=== PATIENT | female | born 1950 | race Caucasian/White ===

== ENCOUNTER → 2018-05-29 | Outpatient (CLI) | payer MEDICARE, BC ==
[2018-05-29 13:46] LABS: HCT 48.5 % (34.0-46.0); HGB 15.2 gm/dL (11.4-16.0); MCH 30.5 pg (25.0-35.0); MCHC 31.3 g/dL (31.0-37.0); MCV 97.4 fL (80.0-100.0); Mean Platelet Volume 6.4; Platelet Count 567 k/uL (150-450); RBC 4.98 m/uL (3.80-5.40); RDW 12.1 % (11.5-15.5); WBC 9.8 k/uL (3.8-10.6)
[2018-05-29 13:47] LABS: Partial Thromboplastin Time 26.5 sec (22.0-30.0); Prothrombin Time 10.5 sec (9.0-12.0)
[2018-05-29 13:48] LABS: ALT 80 U/L (9-52); AST 65 U/L (14-36); Albumin 4.3 g/dL (3.5-5.0); Alkaline Phosphatase 107 U/L (38-126); Anion Gap 11 mmol/L; Blood Urea Nitrogen 17 mg/dL (7-17); Calcium 10.3 mg/dL (8.4-10.2); Carbon Dioxide 25 mmol/L (22-30); Chloride 105 mmol/L (98-107); Glucose 98 mg/dL (74-99); Potassium 4.5 mmol/L (3.5-5.1); Sodium 141 mmol/L (137-145); Total Bilirubin 0.5 mg/dL (0.2-1.3); Total Protein 6.7 g/dL (6.3-8.2)
[2018-05-29 14:14] LABS: Appearance,Urine Clear (Clear); Bilirubin,Urine Negative (Negative); Blood,Urine Negative (Negative); Color,Urine Yellow; Glucose,Urine (UA) Negative (Negative); Ketones,Urine Negative (Negative); Leukocyte Esterase,Urine Negative (Negative); Nitrite,Urine Negative (Negative); Protein,Urine Negative (Negative); Specific Gravity,Urine 1.014 (1.001-1.035); Urobilinogen,Urine <2.0 mg/dL (<2.0)
== END | disposition home or self-care (01) ==
LOC: LABPAT 13:02
PROVIDERS: ATTEND Orthopaedic Surgery
DX: Z01.818 Encounter for other preprocedural examination (principal); Z01.812 Encounter for preprocedural laboratory examination; Z79.01 Long term (current) use of anticoagulants
CPT/HCPCS: 36415; 80053; 81003; 85027; 85610; 85730; 87070; 93005

== ENCOUNTER 2018-06-23 05:32 | Inpatient (IN) | payer MEDICARE, BC ==
[2018-06-16 12:52] VITALS: BMI 28.3
[~2018-06-23 05:32] MED LIST: ACETAMINOPHEN TAB 500 MG TAB PO ONE; DEXAMETHASONE SOD PHOSPHATE 10 MG/ML 1 ML VIAL IV ONE; HYDROmorphone 0.5 MG/0.5 ML SYRINGE IVP PRN; LIDOCAINE 1% 20 ML VIAL (10MG/ML) FOR IV START INTRADERMA PRN; MELOXICAM 7.5 MG TAB PO ONE; ONDANSETRON 4 MG/2 ML VIAL IVP ONE; TRANEXAMIC ACID 1,000 MG in SODIUM CHLORIDE 0.9% 50 ML IVPB ONE; ceFAZolin IN SWFI 2 GM/20 ML SYRINGE IVP ONE
[2018-06-23] MEDS ORDERED: ROPIVACAINE 246.25 MG, EPINEPHrine 0.5 MG, KETOROLAC 30 MG, cloNIDine HCL/PF 80 MCG, WA... MISCELLANE ONE ×5 (06:10)
[2018-06-23] MEDS: LACTATED RINGERS 1,000 ML IV SCH (06:14)
[2018-06-23] MEDS ORDERED: MIDAZOLAM 2 MG/2 ML VIAL IV ONE (06:43)
[2018-06-23] MEDS ORDERED: fentaNYL (PF) 50 MCG/ML 2 ML AMP IV ONE (06:43)
[2018-06-23] MEDS ORDERED: TRANEXAMIC ACID 1,000 MG/10 ML VIAL ONE (07:11)
[2018-06-23] MEDS ORDERED: MIDAZOLAM 2 MG/2 ML VIAL ONE (07:11)
[2018-06-23] MEDS ORDERED: fentaNYL (PF) 50 MCG/ML 2 ML AMP ONE (07:11)
[2018-06-23] MEDS ORDERED: ePHEDrine SULFATE/0.9% NACL/PF 50 MG/5 ML SYRINGE IV ONE (07:11)
[2018-06-23] MEDS ORDERED: SODIUM CHLORIDE 0.9% 100 ML BAG ONE (07:11)
[2018-06-23] MEDS ORDERED: PROPOFOL 10 MG/ML 20 ML VIAL IV ONE (07:11)
[2018-06-23] MEDS ORDERED: LIDOCAINE 1% INJ 10MG/ML (20 ML MDV) ONE (07:11)
[2018-06-23] MEDS ORDERED: ceFAZolin 3,000 MG in SODIUM CHLORIDE 0.9% IRRIGATIO 3,000 ML IRRIGATION ONE (07:16)
[2018-06-23] MEDS ORDERED: NA PHOS,M-B/NA PHOS,DI-BA 133 ML ENEMA RECTAL PRN (07:17)
[2018-06-23] MEDS ORDERED: HYDROcodone/APAP 5-325MG 1 EACH TAB PO PRN (07:17)
[2018-06-23] MEDS ORDERED: NALOXONE 0.4 MG/ML 1 ML VIAL IV PRN (07:17)
[2018-06-23] MEDS ORDERED: HYDROmorphone 0.5 MG/0.5 ML SYRINGE IVP PRN ×3 (07:17)
[2018-06-23] MEDS ORDERED: BISACODYL 10 MG SUPP RECTAL PRN (07:17)
[2018-06-23] MEDS ORDERED: ONDANSETRON 4 MG/2 ML VIAL IVP PRN (07:17)
[2018-06-23] MEDS ORDERED: MAGNESIUM HYDROXIDE 2,400 MG/10 ML CUP PO PRN (07:17)
--- NOTE | 2018-06-23 08:39 | P.OP ---
Date of Procedure: 06/23/18 Preoperative Diagnosis: Severe osteoarthritis left knee Postoperative Diagnosis: Severe osteoarthritis left knee Procedure(s) Performed: Left total knee arthroplasty Implants: Cortez [employer] Nephew Journey II CR Oxinium cruciate retaining femoral component size 4, left Cortez [employer] Nephew Journey left nonporous tibial baseplate size 2 Cortez [employer] Nephew Journey II, XLPE CR articular insert, size 9 mm, Size 1-2 left Cortez [employer]hew Journey BCS resurfacing oval patellar component, 29 mm All components were cemented using [place] R bone cement.. The articulation is Oxinium on polyethylene. Anesthesia: spinal Surgeon: Elijah Azul Retail Merchandiser #1: Eulalia Canales Estimated Blood Loss (ml): 25 Pathology: other (Bone and cartilage) Condition: stable Disposition: PACU Indications for Procedure: After failure of conservative treatment we discussed the surgical and nonsurgical treatment options at length. Patient wishes to proceed with a total knee arthroplasty. Complications specific to this procedure were discussed at length, including but not limited to infection, bleeding, stiffness , and nerve injury. Patient is aware of all these complications and informed consent was obtained Operative Findings: The operative findings are consistent with severe osteoarthritis of the left knee Description of Procedure: Patient was seen in the preoperative area consent was reviewed and operative site was marked with a skin marker. An adductor canal pain catheter was placed by anesthesia in the preoperative area. Patient was then brought to the operating room and given preoperative antibiotics intravenously. A spinal anesthetic was administered by the anesthesia department. A tourniquet was placed on the upper thigh and the lower extremity was prepped and draped in usual sterile fashion. A gram of transexamic acid was given. A universal timeout was then performed which confirmed the patient's name, surgical site, ALLERGIES, and consent. The lower extremity was then exsanguinated and tourniquet was inflated to 250 mmHg. A standard and anterior midline approach to the knee was performed. The skin and subcutaneous tissue was dissected down to the patellar tendon. A medial parapatellar arthrotomy was then performed. The knee was then extended, the patellar was everted, and the knee was again flexed. Anterior horns of both menisci were excised, and a release was performed to the posterior medial aspect of the knee. On gross visual inspection, there was complete loss of articular cartilage in the medial and patellofemoral joint spaces. There was also significant cartilage damage in the lateral compartment. There were multiple periarticular osteophytes which were then removed with a Ronguer. The femoral canal was then opened with the appropriate drill, and the intramedullary femoral cutting guide was then placed and set for 5 of valgus. The distal femoral cutting block was then pinned in place, and the distal femur was then cut. The cutting block was then removed and the cut was checked for flatness. Next, the sizing guide was then placed and set for 3 external rotation based off of the epicondylar axis and Whitesides line. After the femur was sized, the appropriate 4-in-1 cutting block was then pinned in place. The anterior condyles were cut without notching. The posterior and chamfer cuts were performed while protecting the collateral ligaments. The cutting block was then removed, and the femoral canal was plugged with autologous bone. Attention was then directed to the tibia. The remaining ACL was removed with a Ronguer, and the tibia was then gently subluxed forward with a large bent knee retractor. Any remaining menisci was excised. The posterior lateral corner was cauterized in order to cauterize the lateral geniculate artery. The extra medullary tibial cutting guide was then placed, set for the appropriate rotation , slope, and depth of resection. The proximal tibia cutting guide was then pinned in place. Proximal tibia was then cut and sized. Next trials were then placed with the appropriate-sized insert. The knee was able to fully extend and flex to 130 and was stable throughout all range of motion. The knee was then extended, patella everted. Patella was then measured, and then using an osteotomy guide, the patella was cut at the appropriate level. The patella was then measured and drilled and the patella trial was then placed. The knee was then taken through range of motion with the patella trial and the patella tracked normally. The knee was then extended patella trial was then removed and the patella was everted. Knee was then flexed and lug holes were drilled through the femoral trial and the femoral trial was then removed. The tibial was then exposed, and the tibial broach guide was then pinned in place after it was set for the appropriate rotation to allow for the most coverage without overhang. The tibia was then reamed and broached. The cut surfaces of bone were then irrigated with pulsatile lavage. The posterior structures were injected with the ropivacaine solution. The knee was also irrigated with Irrisept solution. The components were then opened, the cement was mixed, and the components were then cemented in place. The cement was allowed to harden with the knee in full extension. While the cement was hardening, the remaining soft tissues were then injected with a ropivacaine solution, which consisted of 246.25 mg of ropivacaine, 0.5 mg of epinephrine, 30 mg of Toradol, 80 g of clonidine, and 48.45 mL of sterile water, for a total of 100 mL of fluid injected. After the cemented hardened. The tourniquet was released, and hemostasis was obtained. A second gram of transexamic acid was given. The knee was again irrigated. The knee was again taken through range of motion and found to be stable throughout all range of motion of 0-130 , and the patella tracked normally. The fascia was then closed with #2 strata fix suture. The subcutaneous tissue was closed with 3-0 Vicryl and 3-0 strata fix. Dermabond glue was used for the skin and placed with the knee in flexion. The patient was placed in a sterile silver dressing. Patient was then transferred to recovery room in stable condition. The assistant city attorney GBAI Brewer was required due the complexity surgery and the need for a skilled assistant city attorney. She assisted in positioning, draping, retraction, and closure of the wound.
[2018-06-23] MEDS ORDERED: ROPIVACAINE 1,100 MG, SODIUM CHLORIDE 0.9% 500 ML 330 ML MISCELLANE PRN ×2 (09:06)
--- NOTE | 2018-06-23 09:09 | P.ONQ ---
Anesthesiology Proc Note - PNB - Peripheral Nerve Block Performed Left Adductor Canal Infusion Time Out Performed: Yes (641) Procedure Start Time: 06:42 Procedure Stop Time: 06:52 Indication: Acute Post-Operative Pain, Dx/Pain Location (Left Knee Pain), Requested by physician Sedation Type: Sedate with meaningful contact maintained Preparation: Sterile Prep Position: Supine Catheter: Indwelling Needle Types: On-Q Needle Size: 100mm (4") Needle Gauge: 21 Technique: Ultrasound Injectate: 0.5% Ropivacaine (see comment for volume) (20ml) Blood Aspirated: No Pain Paresthesia on Injection Noted: No Resistance on Injection: Normal Events: Uneventful and Well Tolerated
--- NOTE | 2018-06-23 10:08 | XR ---
EXAMINATION TYPE: XR knee limited LT DATE OF EXAM: 06/23/2018 CLINICAL HISTORY: Left knee pain and arthritis status post total knee replacement. TECHNIQUE: Portable AP and crosstable lateral views of the left knee are obtained immediately postop eratively. COMPARISON: None FINDINGS: Metallic hardware from total left knee arthroplasty is seen and appears satisfactory in al ignment and position. There is evidence of recent surgery with diffuse subcutaneous gas and soft tis dez swelling noted. IMPRESSION: METALLIC HARDWARE FROM TOTAL LEFT KNEE ARTHROPLASTY IS SATISFACTORY IN ALIGNMENT.
[2018-06-23] MEDS ORDERED: SODIUM CHLORIDE 0.9% 1,000 ML IV ONE (12:47)
[2018-06-23] MEDS: ceFAZolin IN SWFI 2 GM/20 ML SYRINGE IVP SCH ×2 (17:01→23:47)
--- NOTE | 2018-06-23 18:59 | P.CONS ---
History of Present Illness - Reason for Consult Perioperative complication management - History of Present Illness This is a pleasant 67-year-old female admitted for left meatoplasty successfully underwent surgery does have good bowel sounds did pass gas. Patient doesn't have any fever chills. Nausea vomiting abdominal pain. Review of Systems REVIEW OF SYSTEMS: CONSTITUTIONAL: No fever, no malaise, no fatigue. HEENT: No recent visual problems or hearing problems. Denied any sore throat. CARDIOVASCULAR: No chest pain, orthopnea, PND, no palpitations, no syncope. PULMONARY: No shortness of breath, no cough, no hemoptysis. GASTROINTESTINAL: No diarrhea, no nausea, no vomiting, no abdominal pain. NEUROLOGICAL: No headaches, no weakness, no numbness. HEMATOLOGICAL: Denies any bleeding or petechiae. GENITOURINARY: Denies any burning micturition, frequency, or urgency. MUSCULOSKELETAL/RHEUMATOLOGICAL: Denies any joint pain, swelling, or any muscle pain. ENDOCRINE: Denies any polyuria or polydipsia. The rest of the 14-point review of systems is negative. Past Medical History Past Medical History: Cancer, GERD/Reflux, Hyperlipidemia, Osteoarthritis (OA) Additional Past Medical History / Comment(s): HX DIVERTICULITIS, hx. breast cancer 5 yrs. ago-tx. w/radiation & surgery History of Any Multi-Drug Resistant Organisms: None Reported Past Surgical History: Breast Surgery, Section, Tubal Ligation Additional Past Surgical History / Comment(s): right breast lumpectomy 2013 Past Anesthesia/Blood Transfusion Reactions: No Reported Reaction Past Psychological History: No Psychological Hx Reported Smoking Status: Former smoker Past Alcohol Use History: Occasional Additional Past Alcohol Use History / Comment(s): quit smoking 3 months ago, smoked 1ppd for 50 yrs. Past Drug Use History: None Reported - Past Family History Brother(s) Family Medical History: Blood Disorder Additional Family Medical History / Comment(s): BROTHER HX -FACTOR 5 LIEDEN - PT WAS RECENTLY TESTED BY DR. FOWLER AT [facility]-NO RESULTS YET Mother Family Medical History: Cancer Additional Family Medical History / Comment(s): breast CA Medications and Allergies Home Medications Medication Instructions Recorded Confirmed Type Acetaminophen Tab [Tylenol Tab] 650 mg PO Q4-6H PRN 06/16/18 06/23/18 History Omeprazole 20 mg PO QAM 06/16/18 06/23/18 History Loratadine [Claritin] 10 mg PO DAILY PRN 06/23/18 06/23/18 History Allergies Allergy/AdvReac Type Severity Reaction Status Date / Time adhesive Allergy skin Verified 06/23/18 13:49 blisters when tape removed bacitracin Allergy Rash/Hives Verified 06/23/18 13:49 [From Neosporin ([id number])] bacitracin zinc Allergy Rash/Hives Verified 06/23/18 13:49 [From Neosporin ([id number])] neomycin sulfate Allergy Rash/Hives Verified 06/23/18 13:49 [From Neosporin ([id number])] nickel Allergy Rash/Hives Verified 06/23/18 13:49 polymyxin B Allergy Rash/Hives Verified 06/23/18 13:49 [From Neosporin ([id number])] Physical Exam Vitals: Vital Signs Temp Pulse Pulse Pulse Resp BP Pulse Ox 06/23/18 15:00 98.1 F 83 16 123/66 94 L 06/23/18 12:00 72 16 122/56 99 06/23/18 11:30 78 14 123/59 92 L 06/23/18 11:00 80 16 124/58 96 06/23/18 10:30 78 16 123/58 96 06/23/18 10:00 70 16 110/56 99 06/23/18 09:39 68 16 118/56 98 06/23/18 09:24 72 16 114/59 95 06/23/18 09:09 72 16 112/54 96 06/23/18 08:54 97.8 F 83 12 116/56 99 06/23/18 06:11 97.6 F 76 16 145/67 97 Intake and Output 06/23/18 06/23/18 06/23/18 06:59 14:59 22:59 Intake Total 400 791 Output Total 25 Balance 400 766 Intake: IV 400 726 Intake, IV Titration 65 Amount Sodium Chloride 0.9% 1, 65 000 ml @ 65 mls/hr IV . [id number] [facility] Rx#:[id number] Output: Estimated Blood Loss 25 PHYSICAL EXAMINATION: GENERAL: The patient is alert and oriented x3, not in any acute distress. Well developed, well nourished. HEENT: Pupils are round and equally reacting to light. EOMI. No scleral icterus. No conjunctival pallor. Normocephalic, atraumatic. No pharyngeal erythema. No thyromegaly. CARDIOVASCULAR: S1 and S2 present. No murmurs, rubs, or gallops. PULMONARY: Chest is clear to auscultation, no wheezing or crackles. ABDOMEN: Soft, nontender, nondistended, normoactive bowel sounds. No palpable organomegaly. MUSCULOSKELETAL: Deferred to orthopedic surgery EXTREMITIES: No cyanosis, clubbing, or pedal edema. NEUROLOGICAL: Gross neurological examination did not reveal any focal deficits. SKIN: No rashes. Assessment and Plan Plan: -Status post a left knee arthroplasty: Pain management due to prophylaxis per primary service -Gastroesophageal reflux disease Prilosec will be resumed -Hyperlipidemia: Not on any medications can be addressed as an outpatient
[2018-06-23] MEDS: ASPIRIN 325 MG TAB PO SCH (20:19)
[2018-06-23] MEDS ORDERED: SENNOSIDES-DOCUSATE SODIUM 1 EACH TAB PO SCH (21:00)
[2018-06-24] MEDS: HYDROcodone/APAP 5-325MG 1 EACH TAB PO PRN ×3 (00:06→13:00)
[2018-06-24] MEDS: SODIUM CHLORIDE 0.9% 1,000 ML IV SCH ×2 (00:07→00:09)
[2018-06-24] MEDS: LACTATED RINGERS 1,000 ML IV SCH (05:48)
[2018-06-24] MEDS ORDERED: PANTOPRAZOLE 40 MG TABLET PO SCH (07:30)
[2018-06-24 07:50] LABS: Basophils % (A) 0 %; Eosinophils # (A) 0.1 k/uL (0-0.7); Eosinophils % (A) 1 %; HCT 40.3 % (34.0-46.0); Lymphocytes # (A) 1.7 k/uL (1.0-4.8); Lymphocytes % (A) 19 %; MCH 31.1 pg (25.0-35.0); MCHC 32.3 g/dL (31.0-37.0); MCV 96.2 fL (80.0-100.0); Mean Platelet Volume 6.9; Monocytes # (A) 0.8 k/uL (0-1.0); Monocytes % (A) 9 %; Neutrophils # (A) 5.9 k/uL (1.3-7.7); Neutrophils % (A) 68 %; Platelet Count 350 k/uL (150-450); RBC 4.19 m/uL (3.80-5.40); RDW 12.7 % (11.5-15.5); WBC 8.7 k/uL (3.8-10.6)
[2018-06-24] MEDS: ASPIRIN 325 MG TAB PO SCH (07:52)
[2018-06-24 07:59] VITALS: BP 129/68; PULSE 72; RESP 16; TEMP 97.6
--- NOTE | 2018-06-24 08:06 | P.PN ---
Progress Note - Text 06/24 749 am 67-year-old female status post total knee replacement by Dr. Nava height off. Patient has an On-Q pump for postop pain control with the solution running at 8 mL an hour with a vas of 1-2. Doing very well,continue On-Q pump infusion
[2018-06-24] MEDS ORDERED: MELOXICAM 7.5 MG TAB PO SCH (09:00)
--- NOTE | 2018-06-24 09:06 | P.DS ---
Providers Date of admission: 06/23/18 05:32 Expected date of discharge: 06/24/18 Attending physician: Elijah Azul Consults: 06/23/18 07:17 Consult Physician Routine Consulting Provider: Eliu Moore Consult Reason/Comments: medical management Do you want consulting provider notified?: Yes 06/23/18 13:27 Consult Physician Routine Consulting Provider: Linda Gray Consult Reason/Comments: medical management Do you want consulting provider notified?: Already Contacted Primary care physician: Viktor Moore - Discharge Diagnosis(es) (1) Osteoarthritis of left knee Current Visit: Yes Status: Acute (2) Status post total left knee replacement Current Visit: Yes Status: Acute Hospital Course: This is a 67-year-old female with known history of degenerative arthritis of the left knee. The patient presents for evaluation. After discussion and consideration patient elects to proceed with total knee arthroplasty. The patient is seen preoperatively by Dr. Azul and medically cleared for surgery by their primary care physician. Patient is admitted to [facility] on 06/23/2018 for total knee arthroplasty. The procedures performed without complication or sequelae. The patient is doing well postoperatively. Labs and vital signs are stable on day of discharge. On day of discharge patient's knee incision is healing well. There is minimal erythema. There is no drainage noted at this time. There is minimal soft tissue swelling to the knee. Patient has full foot and ankle motion without difficulty or pain. Neurovascular status to the left lower extremity is intact. Patient is discharged home in good condition. Please see med rec for accurate list of home medications. Plan - Discharge Summary Discharge Rx Participant: Yes New Discharge Prescriptions: New Aspirin 325 mg PO BID #60 tab HYDROcodone/APAP 5-325MG [[place] 5-325] 1 - 2 tab PO Q6HR PRN #56 tab PRN Reason: Pain Sennosides [Senokot] 1 tab PO BID #60 tablet No Action Acetaminophen Tab [Tylenol Tab] 650 mg PO Q4-6H PRN PRN Reason: Pain Omeprazole 20 mg PO QAM Loratadine [Claritin] 10 mg PO DAILY PRN PRN Reason: allergies Discharge Medication List Acetaminophen Tab [Tylenol Tab] 650 mg PO Q4-6H PRN 06/16/18 [History] Omeprazole 20 mg PO QAM 06/16/18 [History] Loratadine [Claritin] 10 mg PO DAILY PRN 06/23/18 [History] Aspirin 325 mg PO BID #60 tab 06/24/18 [Rx] HYDROcodone/APAP 5-325MG [[place] 5-325] 1 - 2 tab PO Q6HR PRN #56 tab 06/24/18 [ Rx] Sennosides [Senokot] 1 tab PO BID #60 tablet 06/24/18 [Rx] Follow up Appointment(s)/Referral(s): Eliu Moore MD [Primary Care Provider] - 1 Week [facility], [NON-STAFF] - Elijah Azul DO [Doctor of Osteopathic Medicine] - 2 Weeks Activity/Diet/Wound Care/Special Instructions: Weightbearing as tolerated with a walker. CPM 5-6h daily. Leave dressing intact. May be removed by home care nurse in 10 days. May shower with dressing on. Please follow up with [facility] and call with any questions or concerns, . Discharge Disposition: HOME WITH HOME HEALTH SERVICES
== END 2018-06-24 14:04 | disposition home health service (06) | DRG 470 ==
LOC: 2ORMAIN 05:32 → 4SSUR 12:33
PROVIDERS: ADMIT Orthopaedic Surgery; ATTEND Orthopaedic Surgery
PROC: 0SRD069 Replacement of Left Knee Joint with Oxidized Zirconium on Polyethylene Synthetic Substitute, Cemented, Open Approach (ICD-10-PCS; principal; 2018-06-23 07:00)
DX: M17.12 Unilateral primary osteoarthritis, left knee (principal); E78.5 Hyperlipidemia, unspecified; K21.9 Gastro-esophageal reflux disease without esophagitis; Z80.3 Family history of malignant neoplasm of breast; Z85.3 Personal history of malignant neoplasm of breast; Z87.891 Personal history of nicotine dependence; Z92.3 Personal history of irradiation; Z83.2 Family history of diseases of the blood and blood-forming organs and certain disorders involving the immune mechanism; Z88.8 Allergy status to other drugs, medicaments and biological substances
CPT/HCPCS: 85025; 88300

== ENCOUNTER 2019-07-31 17:17 | Inpatient (IN) | payer MEDICARE, BC ==
[2019-07-31] MEDS ORDERED: MORPHINE SULFATE 4 MG/ML SYRINGE IV STA (17:31)
[2019-07-31] MEDS ORDERED: SODIUM CHLORIDE 0.9% 1,000 ML IV STA ×2 (17:31)
[2019-07-31] MEDS ORDERED: ONDANSETRON 4 MG/2 ML VIAL IVP STA (17:31)
[2019-07-31] MEDS ORDERED: FAMOTIDINE 20 MG/2 ML VIAL IV STA (17:32)
--- NOTE | 2019-07-31 17:35 | ED ---
General Adult HPI - General Chief complaint: Abdominal Pain Stated complaint: Abdominal pain Time Seen by Provider: 07/31/19 17:22 Source: patient, RN notes reviewed Mode of arrival: ambulatory Limitations: no limitations - History of Present Illness Initial comments: Patient is a pleasant 7 he 8-year-old female presenting to the emergency Department with abdominal discomfort. Onset of symptoms was yesterday. Patient has vomited multiple times. Patient still has nausea. Decreased oral intake. patient or diarrhea. Patient does have history of diverticulitis more than once previously with somewhat similar symptoms however discomfort at this point is more diffuse were previously was more left lower quadrant. No fever however patient has had chills. - Related Data Home Medications Medication Instructions Recorded Confirmed Acetaminophen Tab [Tylenol Tab] 650 mg PO Q4-6H PRN 06/16/18 06/23/18 Omeprazole 20 mg PO QAM 06/16/18 06/23/18 Loratadine [Claritin] 10 mg PO DAILY PRN 06/23/18 06/23/18 Previous Rx's Medication Instructions Recorded Aspirin 325 mg PO BID #60 tab 06/24/18 HYDROcodone/APAP 5-325MG [[place] 1 - 2 tab PO Q6HR PRN #56 tab 06/24/18 5-325] Sennosides [Senokot] 1 tab PO BID #60 tablet 06/24/18 Allergies Allergy/AdvReac Type Severity Reaction Status Date / Time adhesive Allergy skin Verified 07/31/19 17:22 blisters when tape removed bacitracin Allergy Rash/Hives Verified 07/31/19 17:22 [From Neosporin ([id number])] bacitracin zinc Allergy Rash/Hives Verified 07/31/19 17:22 [From Neosporin ([id number])] neomycin sulfate Allergy Rash/Hives Verified 07/31/19 17:22 [From Neosporin ([id number])] nickel Allergy Rash/Hives Verified 07/31/19 17:22 polymyxin B Allergy Rash/Hives Verified 07/31/19 17:22 [From Neosporin ([id number])] Review of Systems ROS Statement: Those systems with pertinent positive or pertinent negative responses have been documented in the HPI. ROS Other: All systems not noted in ROS Statement are negative. Constitutional: Reports: chills. Denies: fever Eyes: Denies: eye pain ENT: Denies: ear pain Respiratory: Denies: cough Cardiovascular: Denies: chest pain Endocrine: Denies: fatigue Gastrointestinal: Reports: as per HPI, abdominal pain, nausea, vomiting. Denies: diarrhea, constipation Genitourinary: Denies: dysuria Musculoskeletal: Denies: back pain Skin: Denies: rash Neurological: Denies: weakness Past Medical History Past Medical History: Cancer, GERD/Reflux, Hyperlipidemia, Osteoarthritis (OA) Additional Past Medical History / Comment(s): HX DIVERTICULITIS, hx. breast cancer 5 yrs. ago-tx. w/radiation & surgery History of Any Multi-Drug Resistant Organisms: None Reported Past Surgical History: Breast Surgery, Section, Orthopedic Surgery, Tubal Ligation Additional Past Surgical History / Comment(s): right breast lumpectomy 2014 Past Anesthesia/Blood Transfusion Reactions: No Reported Reaction Past Psychological History: No Psychological Hx Reported Smoking Status: Current every day smoker Past Alcohol Use History: Occasional Past Drug Use History: None Reported - Past Family History Brother(s) Family Medical History: Blood Disorder Additional Family Medical History / Comment(s): BROTHER HX -FACTOR 5 LIEDEN - PT WAS RECENTLY TESTED BY DR. FOWLER AT [facility]-NO RESULTS YET Mother Family Medical History: Cancer Additional Family Medical History / Comment(s): breast CA General Exam Limitations: no limitations General appearance: alert, in no apparent distress Head exam: Present: normocephalic Eye exam: Present: normal appearance, PERRL ENT exam: Present: normal oropharynx Neck exam: Present: normal inspection Respiratory exam: Present: normal lung sounds bilaterally Cardiovascular Exam: Present: regular rate, normal rhythm Expanded Peripheral pulses: 2+: Dorsalis Pedis (R), Dorsalis Pedis (L) GI/Abdominal exam: Present: soft, tenderness (Mild to moderate diffuse tenderness), normal bowel sounds. Absent: distended, guarding, rebound, rigid, pulsatile mass Extremities exam: Present: normal inspection Neurological exam: Present: alert Psychiatric exam: Present: normal affect, normal mood Skin exam: Present: normal color Course Vital Signs 07/31/19 07/31/19 17:20 19:00 Temperature 98.4 F 97.8 F Pulse Rate 102 H 94 Respiratory 18 18 Rate Blood Pressure 160/70 155/91 O2 Sat by Pulse 98 95 Oximetry Medical Decision Making - Medical Decision Making Patient reevaluated and updated. Patient is feeling better. Case discussed with Dr. Day, who will admit covering for hospital surgical call. He does request NG tube. - Lab Data Result diagrams: 07/31/19 17:33 07/31/19 17:33 Lab Results 07/31/19 07/31/19 07/31/19 Range/Units 17:33 17:33 17:33 WBC 15.7 H (3.8-10.6) k/uL RBC 5.64 H (3.80-5.40) m/uL Hgb 17.7 H (11.4-16.0) gm/dL Hct 52.9 H (34.0-46.0) % MCV 93.8 (80.0-100.0) fL MCH 31.4 (25.0-35.0) pg MCHC 33.5 (31.0-37.0) g/dL RDW 12.4 (11.5-15.5) % Plt Count 583 H (150-450) k/uL Neutrophils % 81 % Lymphocytes % 12 % Monocytes % 5 % Eosinophils % 1 % Basophils % 0 % Neutrophils # 12.8 H (1.3-7.7) k/uL Lymphocytes # 1.8 (1.0-4.8) k/uL Monocytes # 0.8 (0-1.0) k/uL Eosinophils # 0.1 (0-0.7) k/uL Basophils # 0.0 (0-0.2) k/uL PT 10.1 (9.0-12.0) sec INR 1.0 (<1.2) APTT 26.0 (22.0-30.0) sec Sodium 136 L (137-145) mmol/L Potassium 4.2 (3.5-5.1) mmol/L Chloride 101 (98-107) mmol/L Carbon Dioxide 26 (22-30) mmol/L Anion Gap 9 mmol/L BUN 23 H (7-17) mg/dL Creatinine 0.65 (0.52-1.04) mg/dL Est GFR (CKD-EPI)AfAm >90 (>60 ml/min/1.73 sqM) Est GFR (CKD-EPI)NonAf >90 (>60 ml/min/1.73 sqM) Glucose 129 H (74-99) mg/dL Calcium 11.0 H (8.4-10.2) mg/dL Total Bilirubin 1.3 (0.2-1.3) mg/dL AST 46 H (14-36) U/L ALT 39 H (4-34) U/L Alkaline Phosphatase 125 (38-126) U/L Total Protein 7.5 (6.3-8.2) g/dL Albumin 4.8 (3.5-5.0) g/dL Amylase 40 (30-110) U/L Lipase 76 (23-300) U/L Urine Color Urine Appearance (Clear) Urine pH (5.0-8.0) Ur Specific [place] (1.001-1.035) Urine Protein (Negative) Urine Glucose (UA) (Negative) Urine Ketones (Negative) Urine Blood (Negative) Urine Nitrite (Negative) Urine Bilirubin (Negative) Urine Urobilinogen (<2.0) mg/dL Ur Leukocyte Esterase (Negative) Urine RBC (0-5) /hpf Urine WBC (0-5) /hpf /12/12 Range/Units 18:17 WBC (3.8-10.6) k/uL RBC (3.80-5.40) m/uL Hgb (11.4-16.0) gm/dL Hct (34.0-46.0) % MCV (80.0-100.0) fL MCH (25.0-35.0) pg MCHC (31.0-37.0) g/dL RDW (11.5-15.5) % Plt Count (150-450) k/uL Neutrophils % % Lymphocytes % % Monocytes % % Eosinophils % % Basophils % % Neutrophils # (1.3-7.7) k/uL Lymphocytes # (1.0-4.8) k/uL Monocytes # (0-1.0) k/uL Eosinophils # (0-0.7) k/uL Basophils # (0-0.2) k/uL PT (9.0-12.0) sec INR (<1.2) APTT (22.0-30.0) sec Sodium (137-145) mmol/L Potassium (3.5-5.1) mmol/L Chloride (98-107) mmol/L Carbon Dioxide (22-30) mmol/L Anion Gap mmol/L BUN (7-17) mg/dL Creatinine (0.52-1.04) mg/dL Est GFR (CKD-EPI)AfAm (>60 ml/min/1.73 sqM) Est GFR (CKD-EPI)NonAf (>60 ml/min/1.73 sqM) Glucose (74-99) mg/dL Calcium (8.4-10.2) mg/dL Total Bilirubin (0.2-1.3) mg/dL AST (14-36) U/L ALT (4-34) U/L Alkaline Phosphatase (38-126) U/L Total Protein (6.3-8.2) g/dL Albumin (3.5-5.0) g/dL Amylase (30-110) U/L Lipase (23-300) U/L Urine Color Light Yellow Urine Appearance Clear (Clear) Urine pH 6.5 (5.0-8.0) Ur Specific [place] 1.022 (1.001-1.035) Urine Protein Negative (Negative) Urine Glucose (UA) Negative (Negative) Urine Ketones Negative (Negative) Urine Blood Trace H (Negative) Urine Nitrite Negative (Negative) Urine Bilirubin Negative (Negative) Urine Urobilinogen <2.0 (<2.0) mg/dL Ur Leukocyte Esterase Negative (Negative) Urine RBC <1 (0-5) /hpf Urine WBC <1 (0-5) /hpf - Radiology Data Radiology results: report reviewed (Computed tomography scan concerning for small bowel obstruction) Disposition Clinical Impression: Small bowel obstruction Disposition: ADMITTED IP TO THIS [facility] Is patient prescribed a controlled substance at d/c from ED?: No Referrals: Eliu Moore MD [Primary Care Provider] - 1-2 days Decision Time: 19:13
[2019-07-31 17:46] LABS: Basophils % (A) 0 %; Eosinophils # (A) 0.1 k/uL (0-0.7); Eosinophils % (A) 1 %; HCT 52.9 % (34.0-46.0); HGB 17.7 gm/dL (11.4-16.0); Lymphocytes # (A) 1.8 k/uL (1.0-4.8); Lymphocytes % (A) 12 %; MCH 31.4 pg (25.0-35.0); MCHC 33.5 g/dL (31.0-37.0); MCV 93.8 fL (80.0-100.0); Mean Platelet Volume 7.5; Monocytes # (A) 0.8 k/uL (0-1.0); Monocytes % (A) 5 %; Neutrophils # (A) 12.8 k/uL (1.3-7.7); Neutrophils % (A) 81 %; Platelet Count 583 k/uL (150-450); RBC 5.64 m/uL (3.80-5.40); RDW 12.4 % (11.5-15.5); WBC 15.7 k/uL (3.8-10.6)
[2019-07-31 17:55] LABS: Prothrombin Time 10.1 sec (9.0-12.0)
[2019-07-31 17:56] LABS: ALT 39 U/L (4-34); AST 46 U/L (14-36); African American GFR (CKD) >90 (>60 ml/min/1.73 sqM); Albumin 4.8 g/dL (3.5-5.0); Alkaline Phosphatase 125 U/L (38-126); Amylase 40 U/L (30-110); Anion Gap 9 mmol/L; Blood Urea Nitrogen 23 mg/dL (7-17); Carbon Dioxide 26 mmol/L (22-30); Chloride 101 mmol/L (98-107); Glucose 129 mg/dL (74-99); Non-African American GFR(CKD) >90 (>60 ml/min/1.73 sqM); Potassium 4.2 mmol/L (3.5-5.1); Sodium 136 mmol/L (137-145); Total Bilirubin 1.3 mg/dL (0.2-1.3); Total Protein 7.5 g/dL (6.3-8.2)
--- NOTE | 2019-07-31 18:46 | CT ---
EXAMINATION TYPE: CT abdomen pelvis w con DATE OF EXAM: 07/31/2019 COMPARISON: 11/07/2010 HISTORY: Abdomen pain, nausea CT DLP: 1233.8 mGycm Automated exposure control for dose reduction was used. CONTRAST: Performed with IV Contrast, patient injected with 100 mL of Isovue 300. Multiple axial sections were obtained from the diaphragm to the floor the pelvis with intravenous con trast Isovue 100 mL. Lung bases are clear of consolidation. There is no pleural effusion. Heart size is normal. Liver spleen stomach pancreas gallbladder appear normal. Bile ducts are not dilated. There is no adre nal mass. There is some nodularity of the left adrenal gland. Kidneys show satisfactory contrast opac ification. There is no hydronephrosis. Ureters are not dilated. There are multiple diverticula of the sigmoid colon. Bladder distends smoothly. There is no inguinal hernia. There is no evidence of a pel ken mass. Uterus is anteverted. There are numerous diverticula throughout the colon. Appendix appears normal. There is no mesenteric edema. There are multiple dilated fluid-filled loops of small bowel in the mid and upper abdomen. The ileum is not dilated. Transition point not identified. There is no evidence o f free air. There is no ascites. There is disc space narrowing at L3-4 with spurring and vacuum disc. There is no lumbar compression fracture. Bony pelvis appears intact. IMPRESSION: Multiple dilated fluid-filled loops of jejunum and proximal ileum consistent with mechanical small keyona wel obstruction. Transition point not identified. Small bowel measures up to 3.5 cm. Moderately severe colonic diverticulosis without sign of diverticulitis. Bowel obstruction appears new compared to old exam.
[2019-07-31 19:09] LABS: Appearance,Urine Clear (Clear); Bilirubin,Urine Negative (Negative); Blood,Urine Trace (Negative); Color,Urine Light Yellow; Glucose,Urine (UA) Negative (Negative); Ketones,Urine Negative (Negative); Leukocyte Esterase,Urine Negative (Negative); Nitrite,Urine Negative (Negative); PH, Urine 6.5 (5.0-8.0); Protein,Urine Negative (Negative); RBC,Urine <1 /hpf (0-5); Specific Gravity,Urine 1.022 (1.001-1.035); Urobilinogen,Urine <2.0 mg/dL (<2.0); WBC,Urine <1 /hpf (0-5)
[2019-07-31] MEDS ORDERED: NALOXONE 0.4 MG/ML 1 ML VIAL IV PRN (19:20)
[2019-07-31] MEDS ORDERED: HYDROmorphone 1 MG/ML 1 ML SYRINGE IVP PRN (19:20)
[2019-07-31] MEDS: ONDANSETRON 4 MG/2 ML VIAL IVP PRN (23:40)
[2019-08-01] MEDS: SODIUM CHLORIDE 0.9% 1,000 ML IV SCH ×4 (05:35→19:38)
[2019-08-01] MEDS: HYDROmorphone 0.5 MG/0.5 ML SYRINGE IVP PRN ×2 (06:36→22:34)
[2019-08-01] MEDS: PANTOPRAZOLE 40 MG/10 ML VIAL IV SCH (09:47)
--- NOTE | 2019-08-01 10:04 | P.GSHP ---
History of Present Illness H&P Date: 08/01/19 68-year-old female presents to the emergency department with 2 days of nausea, vomiting and abdominal pain. She states that she has not had an episode like this previously. She denied any fevers, chills, chest pain or shortness of breath. On workup in the emergency department, CT of the abdomen and pelvis was performed. CT revealed small bowel obstruction with no obvious transition point. The patient states that she has had 2 previous C-sections but no other abdominal surgery. She states that she has had diverticulitis episodes in the past. She states her last bowel movement was 2 days ago and has not had flatus since that time. NG tube was placed by the emergency department with bilious output. - Review of Systems All systems: negative Past Medical History Past Medical History: Cancer, GERD/Reflux, Hyperlipidemia, Osteoarthritis (OA) Additional Past Medical History / Comment(s): HX DIVERTICULITIS, hx. breast cancer 5 yrs. ago-tx. w/radiation & surgery History of Any Multi-Drug Resistant Organisms: None Reported Past Surgical History: Breast Surgery, Section, Orthopedic Surgery, Tubal Ligation Additional Past Surgical History / Comment(s): right breast lumpectomy 2013 Past Anesthesia/Blood Transfusion Reactions: No Reported Reaction Past Psychological History: No Psychological Hx Reported Smoking Status: Current every day smoker Past Alcohol Use History: Occasional Additional Past Alcohol Use History / Comment(s): quit smoking 14 mths ago, smoked 1ppd for 50 yrs. Past Drug Use History: None Reported - Past Family History Brother(s) Family Medical History: Blood Disorder Additional Family Medical History / Comment(s): BROTHER HX -FACTOR 5 LIEDEN - PT WAS RECENTLY TESTED BY DR. FOWLER AT [facility]-NO RESULTS YET Mother Family Medical History: Cancer Additional Family Medical History / Comment(s): breast CA Medications and Allergies Home Medications Medication Instructions Recorded Confirmed Type Acetaminophen Tab [Tylenol Tab] 650 mg PO Q4-6H PRN 06/16/18 06/23/18 History Omeprazole 20 mg PO QAM 06/16/18 06/23/18 History Loratadine [Claritin] 10 mg PO DAILY PRN 06/23/18 06/23/18 History Aspirin 325 mg PO BID #60 tab 06/24/18 Rx HYDROcodone/APAP 5-325MG [[place] 1 - 2 tab PO Q6HR PRN #56 tab 06/24/18 Rx 5-325] Sennosides [Senokot] 1 tab PO BID #60 tablet 06/24/18 Rx Allergies Allergy/AdvReac Type Severity Reaction Status Date / Time adhesive Allergy skin Verified 07/31/19 17:22 blisters when tape removed bacitracin Allergy Rash/Hives Verified 07/31/19 17:22 [From Neosporin ([id number])] bacitracin zinc Allergy Rash/Hives Verified 07/31/19 17:22 [From Neosporin ([id number])] neomycin sulfate Allergy Rash/Hives Verified 07/31/19 17:22 [From Neosporin ([id number])] nickel Allergy Rash/Hives Verified 07/31/19 17:22 polymyxin B Allergy Rash/Hives Verified 07/31/19 17:22 [From Neosporin ([id number])] Surgical - Exam Osteopathic Statement: *. No significant issues noted on an osteopathic structural exam other than those noted in the History and Physical/Consult. Vital Signs Temp Pulse Resp BP Pulse Ox 98.4 F 102 H 18 160/70 98 07/31/19 17:20 07/31/19 17:20 07/31/19 17:20 07/31/19 17:20 07/31/19 17:20 - General well nourished, no distress - Eyes PERRL - ENT no hearing loss - Neck trachea midline - Respiratory normal respiratory effort - Abdomen Soft, nontender, nondistended, no rebound, no guarding - Psychiatric oriented to time, oriented to person, oriented to place Results - Labs 07/31/19 17:33 07/31/19 17:33 Abnormal Lab Results - Last 24 Hours (Table) 07/31/19 07/31/19 07/31/19 Range/Units 17:33 17:33 18:17 WBC 15.7 H (3.8-10.6) k/uL RBC 5.64 H (3.80-5.40) m/uL Hgb 17.7 H (11.4-16.0) gm/dL Hct 52.9 H (34.0-46.0) % Plt Count 583 H (150-450) k/uL Neutrophils # 12.8 H (1.3-7.7) k/uL Sodium 136 L (137-145) mmol/L BUN 23 H (7-17) mg/dL Glucose 129 H (74-99) mg/dL Calcium 11.0 H (8.4-10.2) mg/dL AST 46 H (14-36) U/L ALT 39 H (4-34) U/L Urine Blood Trace H (Negative) Diabetes panel 07/31/19 Range/Units 17:33 Sodium 136 L (137-145) mmol/L Potassium 4.2 (3.5-5.1) mmol/L Chloride 101 (98-107) mmol/L Carbon Dioxide 26 (22-30) mmol/L BUN 23 H (7-17) mg/dL Creatinine 0.65 (0.52-1.04) mg/dL Glucose 129 H (74-99) mg/dL Calcium 11.0 H (8.4-10.2) mg/dL AST 46 H (14-36) U/L ALT 39 H (4-34) U/L Alkaline Phosphatase 125 (38-126) U/L Total Protein 7.5 (6.3-8.2) g/dL Albumin 4.8 (3.5-5.0) g/dL Calcium panel 07/31/19 Range/Units 17:33 Calcium 11.0 H (8.4-10.2) mg/dL Albumin 4.8 (3.5-5.0) g/dL Pituitary panel 07/31/19 Range/Units 17:33 Sodium 136 L (137-145) mmol/L Potassium 4.2 (3.5-5.1) mmol/L Chloride 101 (98-107) mmol/L Carbon Dioxide 26 (22-30) mmol/L BUN 23 H (7-17) mg/dL Creatinine 0.65 (0.52-1.04) mg/dL Glucose 129 H (74-99) mg/dL Calcium 11.0 H (8.4-10.2) mg/dL Adrenal panel 07/31/19 Range/Units 17:33 Sodium 136 L (137-145) mmol/L Potassium 4.2 (3.5-5.1) mmol/L Chloride 101 (98-107) mmol/L Carbon Dioxide 26 (22-30) mmol/L BUN 23 H (7-17) mg/dL Creatinine 0.65 (0.52-1.04) mg/dL Glucose 129 H (74-99) mg/dL Calcium 11.0 H (8.4-10.2) mg/dL Total Bilirubin 1.3 (0.2-1.3) mg/dL AST 46 H (14-36) U/L ALT 39 H (4-34) U/L Alkaline Phosphatase 125 (38-126) U/L Total Protein 7.5 (6.3-8.2) g/dL Albumin 4.8 (3.5-5.0) g/dL Assessment and Plan (1) Small bowel obstruction Narrative/Plan: 68-year-old female with small bowel obstruction Continue to keep nothing by mouth, continue nasogastric tube decompression Abdominal x-ray ordered for evaluation of progress of obstructive signs Continue to await bowel function IV fluids Current Visit: Yes Status: Acute Code(s): K56.609 - UNSP INTESTNL OBST, UNSP TO PARTIAL VERSUS COMPLETE OBST SNOMED Code(s): 788211634
--- NOTE | 2019-08-01 12:29 | XR ---
EXAMINATION TYPE: XR abdomen 2V DATE OF EXAM: 08/01/2019 CLINICAL DATA: 68-year-old female small bowel obstruction follow-up, COMPARISON: CT 07/31/2019 FINDINGS: The NG tube sidehole is at the GE junction. Consider slight further advancement into the stomach. Luna pect superimposition shadow obscuring the right base. No evidence for free intraperitoneal air. Small bowel loops remain dilated up to 5.1 cm with differential air-fluid levels levels. Dilatation m ay be slightly increased from recent CT. IV contrast material collecting within the bladder. IMPRESSION: 1. NG tube side hole is at the GE junction level. Recommend slight further advancement into the stoma ch. 2. Persistent findings of small bowel obstruction with small bowel loops dilated up to 5.1 cm, this m ay be slightly increased from recent CT.
[2019-08-01] MEDS: ONDANSETRON 4 MG/2 ML VIAL IVP PRN (13:58)
[2019-08-01] MEDS: HEPARIN SODIUM,PORCINE 5,000 UNIT/ML 1 ML VIAL SQ SCH ×2 (17:37→22:33)
[2019-08-01] MEDS: METOCLOPRAMIDE 5 MG/ML 2 ML VIAL IVP SCH ×2 (18:03→22:33)
[2019-08-02] MEDS: SODIUM CHLORIDE 0.9% 1,000 ML IV SCH ×3 (05:36→15:55)
[2019-08-02] MEDS: METOCLOPRAMIDE 5 MG/ML 2 ML VIAL IVP SCH ×2 (05:36→11:14)
[2019-08-02 06:48] LABS: Basophils % (A) 0 %; Eosinophils # (A) 0.1 k/uL (0-0.7); Eosinophils % (A) 0 %; HGB 15.5 gm/dL (11.4-16.0); Lymphocytes # (A) 1.5 k/uL (1.0-4.8); Lymphocytes % (A) 11 %; MCH 32.2 pg (25.0-35.0); MCV 97.7 fL (80.0-100.0); Mean Platelet Volume 7.9; Monocytes # (A) 0.9 k/uL (0-1.0); Monocytes % (A) 7 %; Neutrophils # (A) 11.3 k/uL (1.3-7.7); Neutrophils % (A) 81 %; Platelet Count 428 k/uL (150-450); RBC 4.81 m/uL (3.80-5.40); RDW 12.2 % (11.5-15.5)
[2019-08-02] MEDS: HEPARIN SODIUM,PORCINE 5,000 UNIT/ML 1 ML VIAL SQ SCH ×3 (08:10→23:18)
[2019-08-02] MEDS: PANTOPRAZOLE 40 MG/10 ML VIAL IV SCH (08:10)
--- NOTE | 2019-08-02 08:50 | XR ---
EXAMINATION TYPE: XR abdomen complete w decub DATE OF EXAM: 08/02/2019 COMPARISON: 08/01/2019 HISTORY: Small bowel obstruction. Abdominal pain. TECHNIQUE: Upright view the abdomen and supine view of the abdomen as well as left lateral decubitus view of the abdomen were performed. FINDINGS: There are dilated loops of small bowel measuring up to 5.8 cm. These have enlarged from the prior. There are differential air-fluid levels. No pneumoperitoneum seen. Enteric tube is cephalad i n position and should be advanced at least 12 cm for optimal placement. Trace right pleural effusion is seen. Surgical clips of the right breast. No acute osseous pathology. IMPRESSION: 1. Progressively dilating loops of small bowel compatible with small bowel obstruction. 2. Enteric tube should be advanced 12 cm for optimal placement. 3. Trace right pleural effusion.
[2019-08-02] MEDS: ONDANSETRON 4 MG/2 ML VIAL IVP PRN (09:16)
[2019-08-02 10:54] LABS: ALT 52 U/L (4-34); AST 61 U/L (14-36); African American GFR (CKD) >90 (>60 ml/min/1.73 sqM); Albumin 3.5 g/dL (3.5-5.0); Alkaline Phosphatase 101 U/L (38-126); Anion Gap 10 mmol/L; Blood Urea Nitrogen 13 mg/dL (7-17); Calcium 9.1 mg/dL (8.4-10.2); Carbon Dioxide 21 mmol/L (22-30); Chloride 106 mmol/L (98-107); Glucose 97 mg/dL (74-99); Non-African American GFR(CKD) >90 (>60 ml/min/1.73 sqM); Potassium 3.7 mmol/L (3.5-5.1); Sodium 137 mmol/L (137-145); Total Bilirubin 1.8 mg/dL (0.2-1.3); Total Protein 5.8 g/dL (6.3-8.2)
--- NOTE | 2019-08-02 13:57 | P.PN ---
Subjective Progress Note Date: 08/02/19 Patient seen and examined at bedside. States she is feeling slightly better today. Nasogastric tube was advanced. Abdominal x-ray showing persistent concern for obstruction with dilated small bowel loops. Objective - Vital Signs Vital signs: Vital Signs Temp 98.8 F 08/02/19 11:27 Pulse 82 08/02/19 11:34 Resp 12 08/02/19 11:34 BP 158/80 08/02/19 11:27 Pulse Ox 93 L 08/02/19 11:27 Intake & Output 08/01/19 08/02/19 08/02/19 18:59 06:59 18:59 Intake Total 1125 0 0 Output Total 150 100 Balance 975 -100 0 Weight 78.2 kg Intake: Intake, IV Titration 1125 Amount Sodium Chloride 0.9% 1, 1125 000 ml @ 125 mls/hr IV . Q8H [facility] Rx#:[id number] Oral 0 0 0 Output: Gastric Drainage 150 0 Urine 100 Other: # Voids 2 1 1 - Constitutional General appearance: Present: cooperative, no acute distress - Respiratory Details: No difficulty with respiration - Gastrointestinal Gastrointestinal Comment(s): Soft, nontender, nondistended, no rebound, no guarding - Psychiatric Psychiatric: Present: A&O x's 3 - Labs CBC & Chem 7: 08/02/19 05:48 08/02/19 10:02 Labs: Abnormal Lab Results - Last 24 Hours (Table) 08/02/19 08/02/19 Range/Units 05:48 10:02 WBC 14.0 H (3.8-10.6) k/uL Hct 47.0 H (34.0-46.0) % Neutrophils # 11.3 H (1.3-7.7) k/uL Carbon Dioxide 21 L (22-30) mmol/L Creatinine 0.50 L (0.52-1.04) mg/dL Total Bilirubin 1.8 H (0.2-1.3) mg/dL AST 61 H (14-36) U/L ALT 52 H (4-34) U/L Total Protein 5.8 L (6.3-8.2) g/dL Assessment and Plan (1) Small bowel obstruction Narrative/Plan: 68-year-old female with small bowel obstruction Continue to keep nothing by mouth, continue nasogastric tube decompression Abdominal x-ray was reviewed yesterday and today with continued distention of bowel loops I discussed the case with the patient in depth. With concern of small bowel obstruction, we will consider laparotomy based on her progression in the next 24 hours. The patient was agreeable with this plan. Current Visit: Yes Status: Acute Code(s): K56.609 - UNSP INTESTNL OBST, UNSP TO PARTIAL VERSUS COMPLETE OBST SNOMED Code(s): 003905630
[2019-08-02] MEDS: HYDROmorphone 0.5 MG/0.5 ML SYRINGE IVP PRN (23:18)
[2019-08-03 07:17] LABS: Basophils % (A) 0 %; Eosinophils # (A) 0.1 k/uL (0-0.7); Eosinophils % (A) 1 %; HCT 45.4 % (34.0-46.0); Lymphocytes # (A) 1.2 k/uL (1.0-4.8); Lymphocytes % (A) 10 %; MCH 31.6 pg (25.0-35.0); MCV 95.7 fL (80.0-100.0); Mean Platelet Volume 8.7; Monocytes % (A) 8 %; Neutrophils # (A) 9.6 k/uL (1.3-7.7); Neutrophils % (A) 80 %; Platelet Count 349 k/uL (150-450); RBC 4.74 m/uL (3.80-5.40); RDW 12.1 % (11.5-15.5)
[2019-08-03 07:25] LABS: ALT 56 U/L (4-34); African American GFR (CKD) >90 (>60 ml/min/1.73 sqM); Albumin 3.4 g/dL (3.5-5.0); Anion Gap 8 mmol/L; Blood Urea Nitrogen 12 mg/dL (7-17); Calcium 8.8 mg/dL (8.4-10.2); Carbon Dioxide 24 mmol/L (22-30); Chloride 103 mmol/L (98-107); Glucose 79 mg/dL (74-99); Non-African American GFR(CKD) >90 (>60 ml/min/1.73 sqM); Sodium 135 mmol/L (137-145); Total Bilirubin 1.9 mg/dL (0.2-1.3); Total Protein 5.6 g/dL (6.3-8.2)
[2019-08-03 07:27] LABS: AST 49 U/L (14-36); Alkaline Phosphatase 92 U/L (38-126); Potassium 3.6 mmol/L (3.5-5.1)
[2019-08-03] MEDS: SODIUM CHLORIDE 0.9% 1,000 ML IV SCH (08:27)
[2019-08-03] MEDS: HEPARIN SODIUM,PORCINE 5,000 UNIT/ML 1 ML VIAL SQ SCH ×3 (08:36→23:31)
[2019-08-03] MEDS: DEXTROSE 5%-0.45% NACL 1,000 ML IV SCH ×2 (08:36→15:16)
[2019-08-03] MEDS: PANTOPRAZOLE 40 MG/10 ML VIAL IV SCH (08:36)
[2019-08-03] MEDS: ONDANSETRON 4 MG/2 ML VIAL IVP PRN ×3 (08:38→22:14)
--- NOTE | 2019-08-03 08:50 | XR ---
EXAMINATION TYPE: XR abdomen complete w decub DATE OF EXAM: 08/03/2019 CLINICAL HISTORY: Small bowel obstruction. TECHNIQUE: Supine, upright, and left side down lateral decubitus views of the abdomen are obtained. COMPARISON: Acute abdominal series from yesterday and older x-rays. FINDINGS: Further advancement of nasogastric tube with side-port now projecting below diaphragm. Pers istent gaseous dilated small bowel loops with multiple air-fluid levels throughout the central abdome n. Bowel loops are nearly dilated up to 6.0 cm with continued interval progression or worsening. Gas is seen in nondistended bowel loops along the periphery. Persistent small to tiny right pleural effus ion. Osseous structures are intact. No pneumoperitoneum. IMPRESSION: Continued progression of dilated proximal to mid small bowel loops with air-fluid levels consistent with worsening mid small bowel obstruction. Correlate clinically.
[2019-08-03] MEDS ORDERED: IV FLUID CONTINUATION 1,000 ML IV ONE (16:00)
--- NOTE | 2019-08-03 16:32 | P.PN ---
Progress Note - Text Progress Note Date: 08/03/19 patient seen and examined at bedside this morning. Overnight, the patient did have a small bowel movement that she described as rather like or palpable like. She states that she also had some flatus during this episode. Otherwise, she has not had any significant bowel function or flatus episode. She denied any pain in her abdomen. NG tube output overnight was 350 mL. Abdominal x-ray was reviewed this morning that did show further distention of small bowel up to 6 cm. At this point, it does not appear that her obstruction appears to be improving. Secondary to this, plan is for exploratory laparotomy. Risks, benefits and alternatives were provided to the patient. The patient did provide consent. Fuentes Day, DO
[2019-08-03] MEDS ORDERED: ceFAZolin 1,000 MG VIAL ONE (16:37)
[2019-08-03] MEDS ORDERED: ROCURONIUM BROMIDE 10 MG/ML 5 ML VIAL IV ONE (16:37)
[2019-08-03] MEDS ORDERED: GLYCOPYRROLATE 0.2 MG/ML 2 ML VIAL ONE (16:37)
[2019-08-03] MEDS ORDERED: PROPOFOL 10 MG/ML 20 ML VIAL IV ONE (16:37)
[2019-08-03] MEDS ORDERED: LIDOCAINE 1% INJ 10MG/ML (20 ML MDV) ONE (16:37)
[2019-08-03] MEDS ORDERED: NEOSTIGMINE 1 MG/ML 10 ML VIAL ONE (16:37)
[2019-08-03] MEDS ORDERED: fentaNYL (PF) 50 MCG/ML 2 ML AMP ONE (16:37)
[2019-08-03] MEDS ORDERED: MIDAZOLAM 2 MG/2 ML VIAL ONE (16:37)
[2019-08-03] MEDS ORDERED: SUCCINYLCHOLINE CHLORIDE 100 MG/5 ML SYR IV ONE (16:37)
[2019-08-03] MEDS ORDERED: LACTATED RINGERS 1,000 ML IV ONE ×2 (16:40→17:49)
--- NOTE | 2019-08-03 18:07 | P.OP ---
Date of Procedure: 08/03/19 Preoperative Diagnosis: Small bowel obstruction Postoperative Diagnosis: Small bowel obstruction Procedure(s) Performed: Exploratory laparotomy Release of small bowel obstruction Lysis of band Anesthesia: JAMES Surgeon: Fuentes Day Pathology: none sent Condition: stable Disposition: floor Indications for Procedure: 68-year-old female presented to the emergency department with complaints of abdominal pain. On workup she was found to have a small bowel obstruction and nasogastric tube was placed. She was monitored for resolution of small bowel obstruction during her admission and distention continue to worsen. Due to no relief of small bowel suction, plan is for exploratory laparotomy. The patient was excellent the risks, benefits and alternatives to the procedure and did provide her consent prior to attending the operating suite. Operative Findings: Transition point noted at omental to mesenteric band Description of Procedure: The patient was brought into the operating suite and placed in supine position on the operating table. Sedation was provided by anesthesia and the patient underwent endotracheal intubation. The patient was then prepped and draped in regular sterile fashion. A midline incision was made and dissection was carried to the fascia. The fascia was incised along the length of the incision. Immediate fluid was drained from the abdomen that appeared serous in quality. The small bowel was then eviscerated from the abdomen. The bowel was noted to be significantly distended. The bowel was placed aside and the ligament of Treitz was identified. The small bowel was then run from the ligament of Treitz distally. At the mid to distal small bowel, likely jejunum, a band was noted between the omentum and the mesentery that was noted to be the transition point. This band was cut using blunt dissection and scissor. The bowel distal to this point was noted to be collapsed. The bowel was continued to be run distally and the ileocecal valve was encountered. There was no obvious other source of obstr uction. No evidence of colonic obstruction was noted. At this point, due to the significant amount of distention of the bowel, the small bowel was drained by nudging the small bowel content towards the stomach. Nasogastric tube suctioning was performed and approximately 1300 mL of bilious material was withdrawn. At this point, the small bowel was returned into the abdomen. Irrigation was placed in the abdomen and suctioned. The incision site was then closed with a looped PDS suture along the fascia. Skin incision was then closed with skin tobias. Sterile dressing was applied. The patient was awakened in the operating suite and taken to postanesthesia care unit in stable condition.
[2019-08-03] MEDS: HYDROmorphone 0.5 MG/0.5 ML SYRINGE IVP PRN ×6 (18:19→23:35)
[2019-08-03] MEDS: METOCLOPRAMIDE 5 MG/ML 2 ML VIAL IVP SCH (18:49)
[2019-08-03] MEDS: D5-0.45% NACL WITH KCL 20MEQ/L 1,000 ML IV SCH (19:42)
[2019-08-03] MEDS: KETOROLAC 30 MG/ML 1 ML VIAL IVP SCH (22:13)
[2019-08-04] MEDS: METOCLOPRAMIDE 5 MG/ML 2 ML VIAL IVP SCH ×5 (02:09→22:40)
[2019-08-04] MEDS: KETOROLAC 30 MG/ML 1 ML VIAL IVP SCH ×5 (02:09→22:38)
[2019-08-04] MEDS: HYDROmorphone 0.5 MG/0.5 ML SYRINGE IVP PRN ×2 (03:08→22:40)
[2019-08-04] MEDS: D5-0.45% NACL WITH KCL 20MEQ/L 1,000 ML IV SCH ×2 (03:09→13:25)
[2019-08-04 05:58] LABS: Albumin 2.7 g/dL (3.5-5.0); Calcium 8.2 mg/dL (8.4-10.2); Potassium 3.7 mmol/L (3.5-5.1); Total Bilirubin 1.5 mg/dL (0.2-1.3); Total Protein 4.7 g/dL (6.3-8.2)
[2019-08-04 06:07] LABS: Basophils % (A) 0 %; Eosinophils # (A) 0.1 k/uL (0-0.7); Eosinophils % (A) 0 %; HCT 44.5 % (34.0-46.0); Lymphocytes # (A) 0.9 k/uL (1.0-4.8); Lymphocytes % (A) 7 %; MCHC 33.7 g/dL (31.0-37.0); Monocytes # (A) 0.7 k/uL (0-1.0); Monocytes % (A) 6 %; Neutrophils # (A) 11.2 k/uL (1.3-7.7); Neutrophils % (A) 85 %; Platelet Count 354 k/uL (150-450); RBC 4.68 m/uL (3.80-5.40); RDW 12.2 % (11.5-15.5); WBC 13.1 k/uL (3.8-10.6)
[2019-08-04] MEDS: PANTOPRAZOLE 40 MG/10 ML VIAL IV SCH (08:18)
[2019-08-04] MEDS: HEPARIN SODIUM,PORCINE 5,000 UNIT/ML 1 ML VIAL SQ SCH ×3 (08:18→22:38)
--- NOTE | 2019-08-04 08:50 | P.PN ---
Subjective Progress Note Date: 08/04/19 Patient seen and examined at bedside. States pain is well controlled. Denies nausea or vomiting. Nasogastric tube in place. Continued bilious output. No bowel function as of yet. Objective - Vital Signs Vital signs: Vital Signs Temp 98.1 F 08/04/19 03:34 Pulse 89 08/04/19 03:34 Resp 18 08/04/19 03:34 BP 119/73 08/04/19 03:34 Pulse Ox 94 L 08/04/19 03:34 Intake & Output 08/03/19 08/04/19 08/04/19 18:59 06:59 18:59 Intake Total 2140 993 Output Total 1960 300 Balance 180 693 Weight 80.6 kg Intake: IV 2140 875 Dextrose 5%-0.45% NaCl 1, 20 875 000 ml @ 125 mls/hr IV . Q8H [facility] Rx#:[id number] Invasive Line 2 20 Sodium Chloride 0.9% 1, 1000 000 ml @ 125 mls/hr IV . Q8H [facility] Rx#:[id number] Oral 118 Output: Gastric Drainage 1500 100 Urine 450 200 Estimated Blood Loss 10 Other: Voiding Method Indwelling Catheter # Bowel Movements 1 - Constitutional General appearance: Present: cooperative, no acute distress - Gastrointestinal Gastrointestinal Comment(s): Soft, appropriate tenderness, nondistended, no rebound, no guarding, Incision site is clean, dry and intact with surgical dressing in place - Labs CBC & Chem 7: 08/04/19 05:25 08/04/19 05:25 Labs: Abnormal Lab Results - Last 24 Hours (Table) 08/04/19 08/04/19 Range/Units 05:25 05:25 WBC 13.1 H (3.8-10.6) k/uL Neutrophils # 11.2 H (1.3-7.7) k/uL Lymphocytes # 0.9 L (1.0-4.8) k/uL Sodium 131 L (137-145) mmol/L Glucose 161 H (74-99) mg/dL Calcium 8.2 L (8.4-10.2) mg/dL Total Bilirubin 1.5 H (0.2-1.3) mg/dL AST 37 H (14-36) U/L ALT 38 H (4-34) U/L Total Protein 4.7 L (6.3-8.2) g/dL Albumin 2.7 L (3.5-5.0) g/dL Assessment and Plan (1) Small bowel obstruction Narrative/Plan: Postoperative day #1, exploratory laparotomy, release of small bowel obstruction Continue to keep nothing by mouth, continue nasogastric tube decompression Increase activity Okay for ice chips and popsicles Consult placed to dietitian for PPN as the patient has been n.p.o. for 3 days Recommended chewing gum Pain control Discontinue Lal catheter Current Visit: Yes Status: Acute Code(s): K56.609 - UNSP INTESTNL OBST, UNSP TO PARTIAL VERSUS COMPLETE OBST SNOMED Code(s): 746955929
[2019-08-04] MEDS ORDERED: MVI, ADULT NO.4 WITH VIT K 10 ML, TRACE (CONC-1ML/DOSE) 1 ML in AMINO ACID 4.25%-D10W+L... IV SCH ×3 (16:00)
[2019-08-04 16:27] LABS: Albumin 2.7 g/dL (3.5-5.0); Calcium 8.1 mg/dL (8.4-10.2); Magnesium 1.5 mg/dL (1.6-2.3); Phosphorus 2.4 mg/dL (2.5-4.5); Potassium 3.6 mmol/L (3.5-5.1); Total Bilirubin 0.9 mg/dL (0.2-1.3); Total Protein 4.7 g/dL (6.3-8.2)
[2019-08-04] MEDS ORDERED: SODIUM PHOSPHATE 10 MMOL in SODIUM CHLORIDE 0.9% 250 ML IVPB ONE (17:00)
[2019-08-04] MEDS: FAT EMULSION 20% 250 ML IV SCH (17:50)
[2019-08-04] MEDS: MAGNESIUM SULFATE-D5W PMX 1 GM in DEXTROSE/WATER 1 100ML.BAG IVPB SCH ×2 (18:02→20:28)
[2019-08-04 18:16] LABS: Glucose,Whole Blood 130 mg/dL (75-99)
[2019-08-04] MEDS: INSULIN ASPART (NovoLOG) 100 UNIT/ML VIAL SQ SCH ×2 (18:59→22:39)
[2019-08-04 20:42] LABS: Glucose,Whole Blood 150 mg/dL (75-99)
[2019-08-05 00:02] LABS: Glucose,Whole Blood 126 mg/dL (75-99)
[2019-08-05 00:12] LABS: Basophils % (A) 0 %; Eosinophils # (A) 0.4 k/uL (0-0.7); Eosinophils % (A) 4 %; HCT 40.2 % (34.0-46.0); HGB 13.5 gm/dL (11.4-16.0); Lymphocytes # (A) 0.9 k/uL (1.0-4.8); Lymphocytes % (A) 10 %; MCHC 33.7 g/dL (31.0-37.0); MCV 95.1 fL (80.0-100.0); Mean Platelet Volume 7.6; Monocytes # (A) 0.4 k/uL (0-1.0); Monocytes % (A) 5 %; Neutrophils # (A) 7.6 k/uL (1.3-7.7); Neutrophils % (A) 81 %; Platelet Count 286 k/uL (150-450); RBC 4.22 m/uL (3.80-5.40); RDW 12.3 % (11.5-15.5); WBC 9.4 k/uL (3.8-10.6)
[2019-08-05] MEDS: D5-0.45% NACL WITH KCL 20MEQ/L 1,000 ML IV SCH (02:52)
[2019-08-05] MEDS: METOCLOPRAMIDE 5 MG/ML 2 ML VIAL IVP SCH ×3 (05:35→17:01)
[2019-08-05] MEDS: KETOROLAC 30 MG/ML 1 ML VIAL IVP SCH ×2 (05:36→12:26)
[2019-08-05 05:42] LABS: Glucose,Whole Blood 112 mg/dL (75-99)
[2019-08-05] MEDS: INSULIN ASPART (NovoLOG) 100 UNIT/ML VIAL SQ SCH ×3 (06:45→19:03)
[2019-08-05] MEDS: HEPARIN SODIUM,PORCINE 5,000 UNIT/ML 1 ML VIAL SQ SCH ×2 (08:15→16:39)
[2019-08-05] MEDS: PANTOPRAZOLE 40 MG/10 ML VIAL IV SCH (08:15)
[2019-08-05 08:16] LABS: Basophils % (A) 0 %; Eosinophils # (A) 0.4 k/uL (0-0.7); Eosinophils % (A) 4 %; HCT 41.6 % (34.0-46.0); HGB 13.5 gm/dL (11.4-16.0); Lymphocytes # (A) 0.6 k/uL (1.0-4.8); Lymphocytes % (A) 7 %; MCH 31.1 pg (25.0-35.0); MCHC 32.5 g/dL (31.0-37.0); MCV 95.8 fL (80.0-100.0); Mean Platelet Volume 8.2; Monocytes # (A) 0.6 k/uL (0-1.0); Monocytes % (A) 6 %; Neutrophils # (A) 7.7 k/uL (1.3-7.7); Neutrophils % (A) 81 %; Platelet Count 257 k/uL (150-450); RBC 4.34 m/uL (3.80-5.40); RDW 12.3 % (11.5-15.5); WBC 9.5 k/uL (3.8-10.6)
[2019-08-05 08:32] LABS: ALT 28 U/L (4-34); AST 32 U/L (14-36); African American GFR (CKD) >90 (>60 ml/min/1.73 sqM); Albumin 2.8 g/dL (3.5-5.0); Alkaline Phosphatase 76 U/L (38-126); Anion Gap 7 mmol/L; Blood Urea Nitrogen 19 mg/dL (7-17); Calcium 8.1 mg/dL (8.4-10.2); Carbon Dioxide 25 mmol/L (22-30); Chloride 101 mmol/L (98-107); Glucose 132 mg/dL (74-99); Magnesium 2.4 mg/dL (1.6-2.3); Non-African American GFR(CKD) >90 (>60 ml/min/1.73 sqM); Phosphorus 2.7 mg/dL (2.5-4.5); Potassium 3.7 mmol/L (3.5-5.1); Sodium 133 mmol/L (137-145); Total Bilirubin 0.7 mg/dL (0.2-1.3)
[2019-08-05 12:17] LABS: Glucose,Whole Blood 125 mg/dL (75-99)
--- NOTE | 2019-08-05 13:31 | P.PN ---
Subjective Progress Note Date: 08/05/19 Patient seen and examined at bedside. No bowel function yet. Complains of some cramping abdominal feeling occasionally. Denies nausea or vomiting. Nasogastric tube in place. Objective - Vital Signs Vital signs: Vital Signs Temp 98.0 F 08/05/19 07:50 Pulse 84 08/05/19 07:50 Resp 18 08/05/19 07:50 BP 136/64 08/05/19 07:50 Pulse Ox 92 L 08/05/19 07:50 Intake & Output 08/04/19 08/05/19 08/05/19 18:59 06:59 18:59 Intake Total 450 Output Total 350 200 Balance -350 250 Weight 80.6 kg 81.4 kg Intake: Intake, IV Titration 450 Amount Magnesium Sulfate-D5w Pmx 200 1 gm In Dextrose/Water 1 100ml.bag @ 100 mls/hr IVPB Q1H [facility] Rx#: [id number] Sodium Phosphate 10 mmol 250 In Sodium Chloride 0.9% 250 ml @ 125 mls/hr IVPB ONCE ONE Rx#:[id number] Output: Gastric Drainage 350 200 Other: Voiding Method Indwelling Catheter # Voids 3 2 - Constitutional General appearance: Present: cooperative, no acute distress - Gastrointestinal Gastrointestinal Comment(s): Soft, mild distention, no rebound, no guarding, no significant tenderness, midline incision with surgical dressing in place - Psychiatric Psychiatric: Present: A&O x's 3 - Labs CBC & Chem 7: 08/05/19 07:12 08/05/19 07:12 Labs: Abnormal Lab Results - Last 24 Hours (Table) 08/04/19 08/04/19 08/04/19 Range/Units 15:55 18:14 20:40 Lymphocytes # (1.0-4.8) k/uL Sodium 133 L (137-145) mmol/L BUN 18 H (7-17) mg/dL Glucose 138 H (74-99) mg/dL POC Glucose (mg/dL) 130 H 150 H (75-99) mg/dL Calcium 8.1 L (8.4-10.2) mg/dL Phosphorus 2.4 L (2.5-4.5) mg/dL Magnesium 1.5 L (1.6-2.3) mg/dL Total Protein 4.7 L (6.3-8.2) g/dL Albumin 2.7 L (3.5-5.0) g/dL 08/04/19 08/05/19 08/05/19 Range/Units 23:59 00:01 05:41 Lymphocytes # 0.9 L (1.0-4.8) k/uL Sodium (137-145) mmol/L BUN (7-17) mg/dL Glucose (74-99) mg/dL POC Glucose (mg/dL) 126 H 112 H (75-99) mg/dL Calcium (8.4-10.2) mg/dL Phosphorus (2.5-4.5) mg/dL Magnesium (1.6-2.3) mg/dL Total Protein (6.3-8.2) g/dL Albumin (3.5-5.0) g/dL 08/05/19 08/05/19 08/05/19 Range/Units 07:12 07:12 12:16 Lymphocytes # 0.6 L (1.0-4.8) k/uL Sodium 133 L (137-145) mmol/L BUN 19 H (7-17) mg/dL Glucose 132 H (74-99) mg/dL POC Glucose (mg/dL) 125 H (75-99) mg/dL Calcium 8.1 L (8.4-10.2) mg/dL Phosphorus (2.5-4.5) mg/dL Magnesium 2.4 H (1.6-2.3) mg/dL Total Protein 5.0 L (6.3-8.2) g/dL Albumin 2.8 L (3.5-5.0) g/dL Assessment and Plan (1) Small bowel obstruction Narrative/Plan: Postoperative day #2, exploratory laparotomy, release of small bowel obstruction Continue to keep nothing by mouth, continue nasogastric tube decompression Await bowel function Increase activity Chew gum Okay for ice chips and popsicles Continue PPN Pain control Current Visit: Yes Status: Acute Code(s): K56.609 - UNSP INTESTNL OBST, UNSP TO PARTIAL VERSUS COMPLETE OBST SNOMED Code(s): 676801243
[2019-08-05] MEDS: 1: MVI, ADULT NO.4 WITH VIT K 10 ML, TRACE (CONC-1ML/DOSE) 1 ML in AMINO ACID 4.25%-D10W IV SCH ×3 (14:04)
[2019-08-05] MEDS: IPRATROPIUM-ALBUTEROL 3 ML NEB INHALATION PRN (16:22)
[2019-08-05 18:56] LABS: Glucose,Whole Blood 164 mg/dL (75-99)
[2019-08-06 00:03] LABS: Glucose,Whole Blood 143 mg/dL (75-99)
[2019-08-06] MEDS: INSULIN ASPART (NovoLOG) 100 UNIT/ML VIAL SQ SCH ×5 (01:11→18:24)
[2019-08-06] MEDS: 1: MVI, ADULT NO.4 WITH VIT K 10 ML, TRACE (CONC-1ML/DOSE) 1 ML in AMINO ACID 4.25%-D10W IV SCH ×9 (01:26→12:54)
[2019-08-06] MEDS: HEPARIN SODIUM,PORCINE 5,000 UNIT/ML 1 ML VIAL SQ SCH ×3 (01:28→15:56)
[2019-08-06] MEDS: METOCLOPRAMIDE 5 MG/ML 2 ML VIAL IVP SCH ×4 (01:28→18:22)
[2019-08-06] MEDS: IPRATROPIUM-ALBUTEROL 3 ML NEB INHALATION PRN ×2 (01:47→09:25)
[2019-08-06 05:53] LABS: Glucose,Whole Blood 155 mg/dL (75-99)
[2019-08-06 06:17] LABS: Basophils % (A) 0 %; Eosinophils # (A) 0.2 k/uL (0-0.7); Eosinophils % (A) 2 %; HCT 41.8 % (34.0-46.0); HGB 13.7 gm/dL (11.4-16.0); Lymphocytes # (A) 0.6 k/uL (1.0-4.8); Lymphocytes % (A) 6 %; MCH 31.4 pg (25.0-35.0); MCHC 32.7 g/dL (31.0-37.0); Mean Platelet Volume 8.1; Monocytes # (A) 0.6 k/uL (0-1.0); Monocytes % (A) 5 %; Neutrophils # (A) 9.7 k/uL (1.3-7.7); Neutrophils % (A) 86 %; Platelet Count 232 k/uL (150-450); RBC 4.36 m/uL (3.80-5.40); RDW 12.3 % (11.5-15.5); WBC 11.3 k/uL (3.8-10.6)
[2019-08-06 06:21] LABS: ALT 24 U/L (4-34); AST 25 U/L (14-36); African American GFR (CKD) >90 (>60 ml/min/1.73 sqM); Albumin 2.9 g/dL (3.5-5.0); Alkaline Phosphatase 93 U/L (38-126); Anion Gap 6 mmol/L; Blood Urea Nitrogen 20 mg/dL (7-17); Calcium 8.3 mg/dL (8.4-10.2); Carbon Dioxide 28 mmol/L (22-30); Chloride 101 mmol/L (98-107); Glucose 145 mg/dL (74-99); Non-African American GFR(CKD) >90 (>60 ml/min/1.73 sqM); Phosphorus 2.6 mg/dL (2.5-4.5); Potassium 3.4 mmol/L (3.5-5.1); Sodium 135 mmol/L (137-145); Total Bilirubin 0.7 mg/dL (0.2-1.3)
[2019-08-06] MEDS: HYDROmorphone 0.5 MG/0.5 ML SYRINGE IVP PRN (06:24)
--- NOTE | 2019-08-06 09:06 | P.PN ---
Subjective Progress Note Date: 08/06/19 Principal diagnosis: Status post release of small bowel obstruction The patient is seen on rounds. She is feeling well. She is begun to pass flatus and had 2 bowel movements. Mild incisional pain. Chest pain or shortness of breath. Complaining of some right calf tenderness Objective - Vital Signs Vital signs: Vital Signs Temp 98.5 F 08/06/19 00:00 Pulse 98 08/06/19 04:00 Resp 18 08/06/19 04:00 BP 151/91 08/06/19 04:00 Pulse Ox 92 L 08/06/19 04:00 Intake & Output 08/05/19 08/06/19 08/06/19 18:59 06:59 18:59 Output Total 400 150 Balance -400 -150 Weight 81.4 kg 80.5 kg Output: Gastric Drainage 400 150 Other: Voiding Method Toilet # Voids 3 1 # Bowel Movements 1 - Constitutional General appearance: Present: cooperative, no acute distress - Respiratory Respiratory: bilateral: CTA - Cardiovascular Rhythm: regular - Gastrointestinal General gastrointestinal: Present: decreased bowel sounds (Positive hypoactive bowel sounds), distended (Softly distended) Localized gastrointestinal: surgical scar: diffuse (Dressing is intact with some old dried blood) - Additional findings Additional findings: Negative Homans - Labs CBC & Chem 7: 08/06/19 05:20 08/06/19 05:20 Labs: Abnormal Lab Results - Last 24 Hours (Table) 08/05/19 08/05/19 08/06/19 Range/Units 12:16 18:55 00:02 WBC (3.8-10.6) k/uL Neutrophils # (1.3-7.7) k/uL Lymphocytes # (1.0-4.8) k/uL Sodium (137-145) mmol/L Potassium (3.5-5.1) mmol/L BUN (7-17) mg/dL Creatinine (0.52-1.04) mg/dL Glucose (74-99) mg/dL POC Glucose (mg/dL) 125 H 164 H 143 H (75-99) mg/dL Calcium (8.4-10.2) mg/dL Total Protein (6.3-8.2) g/dL Albumin (3.5-5.0) g/dL 08/06/19 08/06/19 08/06/19 Range/Units 05:20 05:20 05:52 WBC 11.3 H (3.8-10.6) k/uL Neutrophils # 9.7 H (1.3-7.7) k/uL Lymphocytes # 0.6 L (1.0-4.8) k/uL Sodium 135 L (137-145) mmol/L Potassium 3.4 L (3.5-5.1) mmol/L BUN 20 H (7-17) mg/dL Creatinine 0.48 L (0.52-1.04) mg/dL Glucose 145 H (74-99) mg/dL POC Glucose (mg/dL) 155 H (75-99) mg/dL Calcium 8.3 L (8.4-10.2) mg/dL Total Protein 5.0 L (6.3-8.2) g/dL Albumin 2.9 L (3.5-5.0) g/dL Assessment and Plan (1) Right calf pain Current Visit: Yes Status: Acute Code(s): M79.661 - PAIN IN RIGHT LOWER LEG SNOMED Code(s): 482735282 (2) Small bowel obstruction Current Visit: Yes Status: Acute Code(s): K56.609 - UNSP INTESTNL OBST, UNSP TO PARTIAL VERSUS COMPLETE OBST SNOMED Code(s): 183729178 Plan: NG output was negligible yesterday. She's began have some bowel function. The NG tube will be clamped and removed if she tolerates a 6 hours. We'll also obtain ultrasound of the right calf to rule out DVT. She is encouraged to ambulate and use her incentive spirometry. Progressing well.
--- NOTE | 2019-08-06 09:45 | US ---
EXAMINATION TYPE: US venous doppler duplex LE RT DATE OF EXAM: 08/06/2019 9:27 AM COMPARISON: NONE CLINICAL HISTORY: Right calf pain. Pain SIDE PERFORMED: Right TECHNIQUE: The lower extremity deep venous system is examined utilizing real time linear array sonog yosvany with graded compression, doppler sonography and color-flow sonography. VESSELS IMAGED: External Iliac Vein (EIV) Common Femoral Vein Deep Femoral Vein Greater Saphenous Vein * Femoral Vein Popliteal Vein Small Saphenous Vein * Proximal Calf Veins (* superficial vessels) Grayscale, color doppler, spectral doppler imaging performed of the deep veins of the right lower ext remity. There is normal flow, compressibility, vascular waveforms. Right Leg: Negative for DVT IMPRESSION: No sonographic evidence of deep venous thrombosis within the right lower extremity.
[2019-08-06] MEDS: PANTOPRAZOLE 40 MG/10 ML VIAL IV SCH (09:47)
[2019-08-06 12:15] VITALS: BMI 30.4
[2019-08-06 13:26] LABS: Glucose,Whole Blood 118 mg/dL (75-99)
[2019-08-06] MEDS: POTASSIUM CHLORIDE 10 MEQ in WATER FOR INJECTION 1 100ML.BAG IVPB SCH ×4 (15:56→23:15)
[2019-08-06] MEDS: FAT EMULSION 20% 250 ML IV SCH (15:56)
[2019-08-06 18:25] LABS: Glucose,Whole Blood 118 mg/dL (75-99)
[2019-08-06 20:03] LABS: Glucose,Whole Blood 131 mg/dL (75-99)
[2019-08-06] MEDS ORDERED: hydrALAZINE HCL 20 MG/ML 1 ML VIAL IVP PRN (22:54)
[2019-08-06] MEDS ORDERED: POTASSIUM CHLORIDE ER 20 MEQ TAB.ER PO STA (22:57)
[2019-08-07] MEDS: IPRATROPIUM-ALBUTEROL 3 ML NEB INHALATION PRN (00:29)
[2019-08-07] MEDS: HYDROmorphone 0.5 MG/0.5 ML SYRINGE IVP PRN ×2 (00:29→22:54)
[2019-08-07] MEDS: 1: MVI, ADULT NO.4 WITH VIT K 10 ML, TRACE (CONC-1ML/DOSE) 1 ML in AMINO ACID 4.25%-D10W IV SCH ×6 (00:51→09:39)
[2019-08-07] MEDS: INSULIN ASPART (NovoLOG) 100 UNIT/ML VIAL SQ SCH ×2 (02:33→05:38)
[2019-08-07] MEDS: METOCLOPRAMIDE 5 MG/ML 2 ML VIAL IVP SCH ×5 (02:34→23:40)
[2019-08-07] MEDS: HEPARIN SODIUM,PORCINE 5,000 UNIT/ML 1 ML VIAL SQ SCH ×4 (02:34→23:40)
[2019-08-07 02:36] LABS: Glucose,Whole Blood 122 mg/dL (75-99)
[2019-08-07 05:46] LABS: Glucose,Whole Blood 105 mg/dL (75-99)
[2019-08-07] MEDS: PANTOPRAZOLE 40 MG/10 ML VIAL IV SCH (08:35)
[2019-08-07 09:21] LABS: African American GFR (CKD) >90 (>60 ml/min/1.73 sqM); Anion Gap 7 mmol/L; Blood Urea Nitrogen 17 mg/dL (7-17); Calcium 8.6 mg/dL (8.4-10.2); Carbon Dioxide 25 mmol/L (22-30); Chloride 101 mmol/L (98-107); Glucose 109 mg/dL (74-99); Magnesium 1.9 mg/dL (1.6-2.3); Non-African American GFR(CKD) >90 (>60 ml/min/1.73 sqM); Phosphorus 3.2 mg/dL (2.5-4.5); Potassium 4.4 mmol/L (3.5-5.1); Sodium 133 mmol/L (137-145)
--- NOTE | 2019-08-07 09:35 | P.PN ---
Subjective Progress Note Date: 08/07/19 Principal diagnosis: Status post release of small bowel obstruction The patient is seen on rounds. Her PICC line came out last night when she clotted out of bed rail. Nursing hasn't been able to establish a local large enough to resume the PPN. No nausea. NG is been out since yesterday. Objective - Vital Signs Vital signs: Vital Signs Temp 98.0 F 08/07/19 04:59 Pulse 93 08/07/19 04:59 Resp 18 08/07/19 04:59 BP 178/78 08/07/19 04:59 Pulse Ox 91 L 08/07/19 04:59 Intake & Output 08/06/19 08/07/19 08/07/19 18:59 06:59 18:59 Output Total 150 Balance -150 Weight 80.5 kg Output: Gastric Drainage 150 Other: Voiding Method Toilet # Voids 1 2 # Bowel Movements 2 - Constitutional General appearance: Present: average body habitus, no acute distress - Respiratory Respiratory: bilateral: CTA - Cardiovascular Rhythm: regular - Gastrointestinal General gastrointestinal: Present: normal bowel sounds, soft Localized gastrointestinal: surgical scar: diffuse (Dressing is coming loose and has some dried blood on it. No cellulitis on the abdominal wall) - Labs CBC & Chem 7: 08/06/19 05:20 08/07/19 07:53 Labs: Abnormal Lab Results - Last 24 Hours (Table) 08/06/19 08/06/19 08/06/19 Range/Units 13:14 18:22 19:36 Sodium (137-145) mmol/L Creatinine (0.52-1.04) mg/dL Glucose (74-99) mg/dL POC Glucose (mg/dL) 118 H 118 H 131 H (75-99) mg/dL 08/07/19 08/07/19 08/07/19 Range/Units 02:27 05:37 07:53 Sodium 133 L (137-145) mmol/L Creatinine 0.49 L (0.52-1.04) mg/dL Glucose 109 H (74-99) mg/dL POC Glucose (mg/dL) 122 H 105 H (75-99) mg/dL Assessment and Plan (1) Right calf pain Current Visit: Yes Status: Acute Code(s): M79.661 - PAIN IN RIGHT LOWER LEG SNOMED Code(s): 720931494 (2) Small bowel obstruction Current Visit: Yes Status: Acute Code(s): K56.609 - UNSP INTESTNL OBST, UNSP TO PARTIAL VERSUS COMPLETE OBST SNOMED Code(s): 648600718 Plan: The will be started on clear liquid diet. We'll advance as tolerated. The dressing will be changed. Will hold the TPN since she is able to begin eating. Asked medicine to see her due to the elevated blood pressure. She typically does not have problems with her blood pressure at home. Progressing well
[2019-08-07 12:01] LABS: Glucose,Whole Blood 113 mg/dL (75-99)
[2019-08-07 22:36] VITALS: RESP 20
[2019-08-08 05:04] VITALS: BP 160/75; PULSE 88; TEMP 99
[2019-08-08] MEDS: METOCLOPRAMIDE 5 MG/ML 2 ML VIAL IVP SCH (05:31)
[2019-08-08 06:52] LABS: African American GFR (CKD) >90 (>60 ml/min/1.73 sqM); Anion Gap 10 mmol/L; Blood Urea Nitrogen 16 mg/dL (7-17); Carbon Dioxide 24 mmol/L (22-30); Chloride 99 mmol/L (98-107); Glucose 95 mg/dL (74-99); Magnesium 1.8 mg/dL (1.6-2.3); Non-African American GFR(CKD) >90 (>60 ml/min/1.73 sqM); Phosphorus 4.6 mg/dL (2.5-4.5); Potassium 4.1 mmol/L (3.5-5.1); Sodium 133 mmol/L (137-145)
[2019-08-08] MEDS: PANTOPRAZOLE 40 MG/10 ML VIAL IV SCH (08:14)
[2019-08-08] MEDS: HEPARIN SODIUM,PORCINE 5,000 UNIT/ML 1 ML VIAL SQ SCH (08:14)
--- NOTE | 2019-08-08 09:23 | P.DS ---
Providers Date of admission: 07/31/19 19:21 Expected date of discharge: 08/08/19 Attending physician: Fuentes Day DO Consults: 08/06/19 16:38 Consult Physician Routine Consulting Provider: Dyana Argueta Consult Reason/Comments: medical management Do you want consulting provider notified?: Yes Primary care physician: Viktor Moore - Discharge Diagnosis(es) (1) Right calf pain Current Visit: Yes Status: Acute (2) Small bowel obstruction Current Visit: Yes Status: Acute Hospital Course: The patient presented with abdominal pain, nausea, vomiting. Workup showed small bowel obstruction. She underwent a laparotomy with release of small bowel obstruction. NG tube was in place until bowel function returned. She was unable to be slowly advanced on her diet and activity. By 315 she was tolerating a diet. Having bowel movements. Mild pain. Some nausea which was well controlled. Was anxious to go home Procedures: Release of bowel obstruction Patient Condition at Discharge: Good Plan - Discharge Summary New Discharge Prescriptions: New Metoclopramide [Reglan] 10 mg PO ACHS PRN #15 tab PRN Reason: Nausea No Action Acetaminophen Tab [Tylenol Tab] 650 mg PO Q4-6H PRN PRN Reason: Pain Loratadine [Claritin] 10 mg PO DAILY PRN PRN Reason: allergies Multivitamins, Thera [Multivitamin (formulary)] 1 tab PO DAILY Ibuprofen [Motrin Ib] 200 - 400 mg PO Q6H PRN PRN Reason: Pain Cholecalciferol (Vitamin D3) [Vitamin D3] 125 mcg PO DAILY Aspirin EC [Ecotrin] 325 mg PO DAILY Omeprazole Magnesium [PriLOSEC OTC] 20 mg PO DAILY Discharge Medication List Acetaminophen Tab [Tylenol Tab] 650 mg PO Q4-6H PRN 06/16/18 [History] Loratadine [Claritin] 10 mg PO DAILY PRN 06/23/18 [History] Aspirin EC [Ecotrin] 325 mg PO DAILY 08/01/19 [History] Cholecalciferol (Vitamin D3) [Vitamin D3] 125 mcg PO DAILY 08/01/19 [History] Ibuprofen [Motrin Ib] 200 - 400 mg PO Q6H PRN 08/01/19 [History] Multivitamins, Thera [Multivitamin (formulary)] 1 tab PO DAILY 08/01/19 [History] Omeprazole Magnesium [PriLOSEC OTC] 20 mg PO DAILY 08/01/19 [History] Metoclopramide [Reglan] 10 mg PO ACHS PRN #15 tab 08/08/19 [Rx] Follow up Appointment(s)/Referral(s): Eliu Moore MD [Primary Care Provider] - 1-2 days Fuentes Day DO [Doctor of Osteopathic Medicine] - 1 Week (Call for an appointment for staple removal) Activity/Diet/Wound Care/Special Instructions: You may shower. No tub bath for 1 week. No driving for 1-2 weeks. Low fiber foods for 1-2 weeks. Call if you develop fevers, chills, concern about wound infection, vomiting. Discharge Disposition: HOME SELF-CARE
== END 2019-08-08 11:19 | disposition home or self-care (01) | DRG 337 ==
LOC: EC 17:17 → 3SCARD 19:21 → 6NMEDSUR 08-06 18:32
PROVIDERS: ADMIT Surgery; ATTEND Surgery
PROC: 0DNA0ZZ Release Jejunum, Open Approach (ICD-10-PCS; principal; 2019-08-03 09:45)
DX: K56.50 Intestinal adhesions [bands], unspecified as to partial versus complete obstruction (principal); K21.9 Gastro-esophageal reflux disease without esophagitis; E78.5 Hyperlipidemia, unspecified; F17.200 Nicotine dependence, unspecified, uncomplicated; M79.661 Pain in right lower leg; M19.90 Unspecified osteoarthritis, unspecified site; Z79.82 Long term (current) use of aspirin; Z88.1 Allergy status to other antibiotic agents; Z88.8 Allergy status to other drugs, medicaments and biological substances; Z91.048 Other nonmedicinal substance allergy status; Z85.3 Personal history of malignant neoplasm of breast; Z98.890 Other specified postprocedural states; Z98.891 History of uterine scar from previous surgery; Z98.51 Tubal ligation status; Z80.3 Family history of malignant neoplasm of breast; Z83.2 Family history of diseases of the blood and blood-forming organs and certain disorders involving the immune mechanism
CPT/HCPCS: 36415; 74019; 74021; 74177; 80048; 80053; 81001; 82150; 82330; 83690; 83735; 84100; 84478; 85025; 85610; 85730; 94640; 96361; 96374; 96375; 99285

== ENCOUNTER → 2021-07-10 | Outpatient (CLI) | payer MEDICARE ==
--- NOTE | 2021-07-10 08:18 | CTL ---
EXAMINATION TYPE: CT Low Dose Lung DATE OF EXAM ORDERED: 07/10/2021 HISTORY: Long-term tobacco use. Lung cancer screening CT DLP: [address] CTDI: 2.18 mGy Automated exposure control for dose reduction was used. SCREENING VISIT: Baseline COMPARISON: None TECHNIQUE: Low dose computed tomography scan was performed through the chest at 1 mm thick sections a nd reconstructed images in multiple planes at 1 mm and [address] DIAGNOSTIC QUALITY: Satisfactory FINDINGS: LUNG NODULES: Present, detailed below: There is 7.3 x 7.2 mm right upper lobe nodule axial image 101 LUNGS: COPD: Severity: [id number] Fibrosis: Severity: Mild Peripheral right lung Lymph nodes: No greater than 1 cm Other findings: None RIGHT PLEURAL SPACE: Effusion: None Calcification: None Thickening: None Pneumothorax: None LEFT PLEURAL SPACE: Effusion: None Calcification: None Thickening: None Pneumothorax: None HEART: Heart Size: Normal Coronary Calcification: Minimal Pericardial Effusion: None OTHER FINDINGS: Upper abdomen: None Bony thorax: None Supraclavicular region: None Other: Surgical changes to the right breast IMPRESSION: Mild to moderate emphysematous change. There is 7 mm right upper lobe nodule CT LUNG RAD AND CT CHEST RECOMMENDATION: Lung-Rad 3 Probably Benign: 6 month follow-up LDCT. S Modifier (other clinically significant findings): None
== END | disposition home or self-care (01) ==
LOC: RADCTMAIN 07:28
PROVIDERS: ATTEND Family Medicine
DX: Z12.2 Encounter for screening for malignant neoplasm of respiratory organs (principal); R91.1 Solitary pulmonary nodule; J43.9 Emphysema, unspecified; Z87.891 Personal history of nicotine dependence
CPT/HCPCS: 71271

== ENCOUNTER 2021-07-21 17:29 | Inpatient (IN) | payer MEDICARE ==
[2021-07-21] MEDS ORDERED: KETOROLAC 15 MG/ML 1 ML VIAL IVP STA (18:31)
--- NOTE | 2021-07-21 18:34 | ED ---
Abdominal Pain HPI - General Chief Complaint: Abdominal Pain Stated Complaint: abd pain/back pain Time Seen by Provider: 07/21/21 17:50 Source: patient, RN notes reviewed Mode of arrival: ambulatory Limitations: no limitations - History of Present Illness Initial Comments: 70-year-old female who presents with complaints of abdominal pain. States his upper abdomen seems to radiate around to her back sometimes up into the chest area. Some nausea no vomiting he was 5-6/10 severity dull achy in nature breathing much constant. She states she did have a CT the chest weeks ago for follow-up for smoking which she states she just quit 5 days ago that apparently was unremarkable. No other complaints MD Complaint: abdominal pain - Related Data Home Medications Medication Instructions Recorded Confirmed Cholecalciferol (Vitamin D3) 125 mcg PO DAILY 08/01/19 07/21/21 [Vitamin D3 (5000 Iu)] Multivitamins, Thera [Multivitamin 1 tab PO DAILY 08/01/19 07/21/21 (formulary)] Omeprazole Magnesium [PriLOSEC OTC] 20 mg PO DAILY 08/01/19 07/21/21 Acetaminophen Tab [Tylenol Tab] 1,000 mg PO Q6HR PRN 07/21/21 07/21/21 Ascorbic Acid [Vitamin C] 500 mg PO DAILY 07/21/21 07/21/21 Calcium Carbonate [Tums] 1,000 mg PO TID PRN 07/21/21 07/21/21 Ibuprofen [Motrin Ib] 400 mg PO Q8H PRN 07/21/21 07/21/21 [place]-3 Fatty Acids [[place]-3] 1,000 mg PO DAILY 07/21/21 07/21/21 buPROPion XL [Wellbutrin XL] 150 mg PO BID 07/21/21 07/21/21 Allergies Allergy/AdvReac Type Severity Reaction Status Date / Time adhesive Allergy skin Verified 07/21/21 18:39 blisters when tape removed bacitracin Allergy Rash/Hives Verified 07/21/21 18:39 [From Neosporin ([id number])] bacitracin zinc Allergy Rash/Hives Verified 07/21/21 18:39 [From Neosporin ([id number])] neomycin sulfate Allergy Rash/Hives Verified 07/21/21 18:39 [From Neosporin ([id number])] nickel Allergy Rash/Hives Verified 07/21/21 18:39 polymyxin B Allergy Rash/Hives Verified 07/21/21 18:39 [From Neosporin ([id number])] Review of Systems ROS Statement: Those systems with pertinent positive or pertinent negative responses have been documented in the HPI. ROS Other: All systems not noted in ROS Statement are negative. Past Medical History Past Medical History: Cancer, GERD/Reflux, Hyperlipidemia, Osteoarthritis (OA) Additional Past Medical History / Comment(s): HX DIVERTICULITIS, hx. breast cancer 5 yrs. ago-tx. w/radiation & surgery History of Any Multi-Drug Resistant Organisms: None Reported Past Surgical History: Breast Surgery, Section, Orthopedic Surgery, Tubal Ligation Additional Past Surgical History / Comment(s): right breast lumpectomy 2014 Past Anesthesia/Blood Transfusion Reactions: No Reported Reaction Past Psychological History: No Psychological Hx Reported Smoking Status: Never smoker Past Alcohol Use History: Occasional Past Drug Use History: None Reported - Past Family History Brother(s) Family Medical History: Blood Disorder Additional Family Medical History / Comment(s): BROTHER HX -FACTOR 5 LIEDEN - PT WAS RECENTLY TESTED BY DR. FOWLER AT [facility]-NO RESULTS YET Mother Family Medical History: Cancer Additional Family Medical History / Comment(s): breast CA General Exam - General Exam Comments Initial Comments: This is a well-developed well-nourished awake alert oriented 3 female Limitations: no limitations General appearance: alert, in no apparent distress Head exam: Present: atraumatic, normocephalic, normal inspection Eye exam: Present: normal appearance, PERRL, EOMI. Absent: scleral icterus, conjunctival injection, periorbital swelling ENT exam: Present: normal exam, mucous membranes moist Neck exam: Present: normal inspection, full ROM, other. Absent: tenderness, meningismus, lymphadenopathy Respiratory exam: Present: decreased breath sounds, other (Occasional right lower lobe wheezes on expiration). Absent: respiratory distress, wheezes, rales, rhonchi, stridor Cardiovascular Exam: Present: regular rate, normal rhythm, normal heart sounds. Absent: systolic murmur, diastolic murmur, rubs, gallop, clicks GI/Abdominal exam: Present: soft, tenderness (Epigastric and right upper quadrant tenderness no guarding rebound masses or bruits), normal bowel sounds. Absent: distended, guarding, rebound, rigid Rectal exam: Present: deferred Extremities exam: Present: normal inspection, full ROM, normal capillary refill. Absent: tenderness, pedal edema, joint swelling, calf tenderness Back exam: Present: normal inspection Neurological exam: Present: alert, oriented X3, CN II-XII intact Psychiatric exam: Present: normal affect, normal mood Skin exam: Present: warm, dry, intact, normal color. Absent: rash Course Vital Signs 07/21/21 17:32 Temperature 98 F Pulse Rate 82 Respiratory 18 Rate Blood Pressure 178/82 O2 Sat by Pulse 97 Oximetry Medical Decision Making - Medical Decision Making I did discuss case with the patient as well as with Dr. Aceves patient will be admitted place an IV antibiotics each CMP in the morning. - Lab Data Result diagrams: 07/21/21 18:42 07/21/21 18:42 Lab Results 07/21/21 07/21/21 07/21/21 Range/Units 18:42 18:42 18:42 WBC 18.3 H (3.8-10.6) k/uL RBC 4.99 (3.80-5.40) m/uL Hgb 17.0 H (11.4-16.0) gm/dL Hct 49.9 H (34.0-46.0) % MCV 99.9 (80.0-100.0) fL MCH 34.1 (25.0-35.0) pg MCHC 34.1 (31.0-37.0) g/dL RDW 12.5 (11.5-15.5) % Plt Count 471 H (150-450) k/uL MPV 7.4 Neutrophils % 87 % Lymphocytes % 7 % Monocytes % 5 % Eosinophils % 0 % Basophils % 0 % Neutrophils # 15.9 H (1.3-7.7) k/uL Lymphocytes # 1.3 (1.0-4.8) k/uL Monocytes # 0.8 (0-1.0) k/uL Eosinophils # 0.0 (0-0.7) k/uL Basophils # 0.0 (0-0.2) k/uL PT 10.1 (9.0-12.0) sec INR 0.9 (<1.2) APTT 26.2 (22.0-30.0) sec Sodium 132 L (137-145) mmol/L Potassium 3.8 (3.5-5.1) mmol/L Chloride 99 (98-107) mmol/L Carbon Dioxide 22 (22-30) mmol/L Anion Gap 11 mmol/L BUN 19 H (7-17) mg/dL Creatinine 0.46 L (0.52-1.04) mg/dL Est GFR (CKD-EPI)AfAm >90 (>60 ml/min/1.73 sqM) Est GFR (CKD-EPI)NonAf >90 (>60 ml/min/1.73 sqM) Glucose 122 H (74-99) mg/dL Plasma Lactic Acid Noel (0.7-2.0) mmol/L Calcium 10.0 (8.4-10.2) mg/dL Total Bilirubin 0.9 (0.2-1.3) mg/dL AST 29 (14-36) U/L ALT 24 (4-34) U/L Alkaline Phosphatase 116 (38-126) U/L Troponin I (0.000-0.034) ng/mL Total Protein 7.3 (6.3-8.2) g/dL Albumin 4.7 (3.5-5.0) g/dL Amylase 37 (30-110) U/L Lipase 52 (23-300) U/L Urine Color Urine Appearance (Clear) Urine pH (5.0-8.0) Ur Specific Carbon (1.001-1.035) Urine Protein (Negative) Urine Glucose (UA) (Negative) Urine Ketones (Negative) Urine Blood (Negative) Urine Nitrite (Negative) Urine Bilirubin (Negative) Urine Urobilinogen (<2.0) mg/dL Ur Leukocyte Esterase (Negative) Urine RBC (0-5) /hpf Urine WBC (0-5) /hpf Ur Squamous Epith Cells (0-4) /hpf Urine Mucus (None) /hpf 07/21/21 07/21/21 07/21/21 Range/Units 18:42 18:42 19:28 WBC (3.8-10.6) k/uL RBC (3.80-5.40) m/uL Hgb (11.4-16.0) gm/dL Hct (34.0-46.0) % MCV (80.0-100.0) fL MCH (25.0-35.0) pg MCHC (31.0-37.0) g/dL RDW (11.5-15.5) % Plt Count (150-450) k/uL MPV Neutrophils % % Lymphocytes % % Monocytes % % Eosinophils % % Basophils % % Neutrophils # (1.3-7.7) k/uL Lymphocytes # (1.0-4.8) k/uL Monocytes # (0-1.0) k/uL Eosinophils # (0-0.7) k/uL Basophils # (0-0.2) k/uL PT (9.0-12.0) sec INR (<1.2) APTT (22.0-30.0) sec Sodium (137-145) mmol/L Potassium (3.5-5.1) mmol/L Chloride (98-107) mmol/L Carbon Dioxide (22-30) mmol/L Anion Gap mmol/L BUN (7-17) mg/dL Creatinine (0.52-1.04) mg/dL Est GFR (CKD-EPI)AfAm (>60 ml/min/1.73 sqM) Est GFR (CKD-EPI)NonAf (>60 ml/min/1.73 sqM) Glucose (74-99) mg/dL Plasma Lactic Acid Noel 1.0 (0.7-2.0) mmol/L Calcium (8.4-10.2) mg/dL Total Bilirubin (0.2-1.3) mg/dL AST (14-36) U/L ALT (4-34) U/L Alkaline Phosphatase (38-126) U/L Troponin I <0.012 (0.000-0.034) ng/mL Total Protein (6.3-8.2) g/dL Albumin (3.5-5.0) g/dL Amylase (30-110) U/L Lipase (23-300) U/L Urine Color Yellow Urine Appearance Clear (Clear) Urine pH 6.0 (5.0-8.0) Ur Specific Carbon 1.031 (1.001-1.035) Urine Protein Trace H (Negative) Urine Glucose (UA) Negative (Negative) Urine Ketones 2+ H (Negative) Urine Blood Moderate H (Negative) Urine Nitrite Negative (Negative) Urine Bilirubin Negative (Negative) Urine Urobilinogen <2.0 (<2.0) mg/dL Ur Leukocyte Esterase Negative (Negative) Urine RBC 44 H (0-5) /hpf Urine WBC 1 (0-5) /hpf Ur Squamous Epith Cells 1 (0-4) /hpf Urine Mucus Rare H (None) /hpf - Radiology Data Radiology results: report reviewed (Imaging reviewed occlusion unremarkable ultrasound shows evidence of multiple gallstones sludge, bile duct 11 mm), image reviewed Disposition Clinical Impression: Cholecystitis, acute with cholelithiasis, Abdominal pain, Leukocytosis Disposition: ADMITTED IP TO THIS [facility] Condition: Stable Referrals: Eliu Moore MD [Primary Care Provider] - 1-2 days
[2021-07-21 18:59] LABS: INR 0.9 (<1.2); Partial Thromboplastin Time 26.2 sec (22.0-30.0); Prothrombin Time 10.1 sec (9.0-12.0)
[2021-07-21 19:04] LABS: ALT 24 U/L (4-34); AST 29 U/L (14-36); African American GFR (CKD) >90 (>60 ml/min/1.73 sqM); Albumin 4.7 g/dL (3.5-5.0); Alkaline Phosphatase 116 U/L (38-126); Amylase 37 U/L (30-110); Anion Gap 11 mmol/L; Blood Urea Nitrogen 19 mg/dL (7-17); Carbon Dioxide 22 mmol/L (22-30); Chloride 99 mmol/L (98-107); Glucose 122 mg/dL (74-99); Lipase 52 U/L (23-300); Non-African American GFR(CKD) >90 (>60 ml/min/1.73 sqM); Potassium 3.8 mmol/L (3.5-5.1); Sodium 132 mmol/L (137-145); Total Bilirubin 0.9 mg/dL (0.2-1.3); Total Protein 7.3 g/dL (6.3-8.2)
[2021-07-21 19:09] LABS: Basophils % (A) 0 %; Eosinophils % (A) 0 %; HCT 49.9 % (34.0-46.0); Lymphocytes # (A) 1.3 k/uL (1.0-4.8); Lymphocytes % (A) 7 %; MCH 34.1 pg (25.0-35.0); MCHC 34.1 g/dL (31.0-37.0); MCV 99.9 fL (80.0-100.0); Mean Platelet Volume 7.4; Monocytes # (A) 0.8 k/uL (0-1.0); Monocytes % (A) 5 %; Neutrophils # (A) 15.9 k/uL (1.3-7.7); Neutrophils % (A) 87 %; Platelet Count 471 k/uL (150-450); RBC 4.99 m/uL (3.80-5.40); RDW 12.5 % (11.5-15.5); WBC 18.3 k/uL (3.8-10.6)
[2021-07-21 19:41] LABS: Appearance,Urine Clear (Clear); Bilirubin,Urine Negative (Negative); Blood,Urine Moderate (Negative); Color,Urine Yellow; Glucose,Urine (UA) Negative (Negative); Ketones,Urine 2+ (Negative); Leukocyte Esterase,Urine Negative (Negative); Mucus,Urine Rare /hpf; Nitrite,Urine Negative (Negative); Protein,Urine Trace (Negative); RBC,Urine 44 /hpf (0-5); Specific Gravity,Urine 1.031 (1.001-1.035); Squamous Epithelial Cell,Urine 1 /hpf (0-4); Urobilinogen,Urine <2.0 mg/dL (<2.0); WBC,Urine 1 /hpf (0-5)
--- NOTE | 2021-07-21 19:57 | XR ---
EXAMINATION TYPE: XR chest 2V DATE OF EXAM: 07/21/2021 7:16 PM COMPARISON:None TECHNIQUE: XR chest 2V Frontal and lateral views of the chest. CLINICAL INDICATION:Female, 70 years old with history of abdominal pain; FINDINGS: Lungs/Pleura: There is no evidence of pleural effusion, focal consolidation, or pneumothorax. Pulmonary vascularity: Unremarkable. Heart/mediastinum: Cardiomediastinal silhouette is unremarkable. Musculoskeletal: No acute osseous pathology. Other: Surgical clips project over the right lower lung. IMPRESSION: No acute cardiopulmonary disease/process.
--- NOTE | 2021-07-21 19:58 | XR ---
EXAMINATION TYPE: XR KUB DATE OF EXAM: 07/21/2021 7:16 PM INDICATION: Patient age:Female; 70 years old; Reason for study: abdominal pain; COMPARISON: CT abdomen 07/31/2019. TECHNIQUE: One radiographic view of the abdomen was obtained. FINDINGS: The bowel gas pattern is nonspecific without dilated loops of small or large bowel. The o sseous structures are intact. No abnormal calcifications are present. Fecal material and gas are dem onstrated throughout the colon and rectum. IMPRESSION: Nonspecific bowel gas pattern without radiographic evidence for acute process.
--- NOTE | 2021-07-21 21:49 | US ---
EXAMINATION TYPE: US gallbladder DATE OF EXAM: 07/21/2021 COMPARISON: NONE CLINICAL HISTORY: Abdominal pain. EC patient with epigastric pain today radiating to lower abdomen EXAM MEASUREMENTS: Liver Length: 16.3 cm Gallbladder Wall: 0.2 cm CBD: 1.08 cm Right Kidney: 8.4 x 4.9 x 3.6 cm Pancreas: hyperechoic Liver: mildly heterogeneous Gallbladder: abnormally elongated at 15.4cm; shadowing stone = 2.4 x 1.7 x 0.6cm noted in gallbladde r fundus in supine and LLD position Evidence for sonographic Beckham's sign: tender here CBD: enlarged for 6th decade measuring up to 11 mm. Right Kidney: No hydronephrosis or masses seen IMPRESSION: 1. Equivocal findings for acute cholecystitis with dilated gallbladder with multiple gallstones/sludg e. The common bile duct up to 11 mm. The biliary ducts can be further evaluated with MRCP if clinical ly warranted. If concern for acute cholecystitis consider dedicated HIDA scan.
[2021-07-21] MEDS ORDERED: PIPERACILLIN-TAZOBACTAM 3.375 GM in SODIUM CHLORIDE 0.9% 100 ML IVPB STA (23:33)
[2021-07-21] MEDS ORDERED: HYDROmorphone 0.5 MG/0.5 ML SYRINGE IVP PRN (23:37)
[2021-07-21] MEDS ORDERED: ONDANSETRON 4 MG/2 ML VIAL IVP PRN (23:37)
[2021-07-21] MEDS ORDERED: NALOXONE 0.4 MG/ML 1 ML VIAL IV PRN (23:37)
[2021-07-22] MEDS ORDERED: PIPERACILLIN-TAZOBACTAM 3.375 GM in SODIUM CHLORIDE 0.9% 100 ML IVPB SCH ×2
[2021-07-22] MEDS: SODIUM CHLORIDE 0.9% 1,000 ML IV SCH ×3 (00:47→16:43)
[2021-07-22 01:49] LABS: ALT 23 U/L (4-34); AST 38 U/L (14-36); African American GFR (CKD) >90 (>60 ml/min/1.73 sqM); Albumin 4.3 g/dL (3.5-5.0); Alkaline Phosphatase 85 U/L (38-126); Anion Gap 8 mmol/L; Blood Urea Nitrogen 17 mg/dL (7-17); Calcium 9.7 mg/dL (8.4-10.2); Carbon Dioxide 24 mmol/L (22-30); Chloride 103 mmol/L (98-107); Glucose 132 mg/dL (74-99); Non-African American GFR(CKD) >90 (>60 ml/min/1.73 sqM); Potassium 4.4 mmol/L (3.5-5.1); Sodium 135 mmol/L (137-145); Total Bilirubin 1.4 mg/dL (0.2-1.3); Total Protein 6.8 g/dL (6.3-8.2)
[2021-07-22] MEDS: HYDROmorphone 1 MG/ML 1 ML SYRINGE IVP PRN ×4 (04:06→14:00)
[2021-07-22] MEDS: PIPERACILLIN-TAZOBACTAM 3.375 GM in SODIUM CHLORIDE 0.9% 100 ML IVPB SCH ×2 (07:37→16:43)
--- NOTE | 2021-07-22 09:41 | P.GSHP ---
History of Present Illness H&P Date: 07/22/21 Chief Complaint: Acute cholecystitis 70-year-old female presents with complaints of pain right upper quadrant. Pain radiates to the chest into the back. Started 2-3 days ago. No history of similar events. Patient has nausea without vomiting. Pain was 8 out of 10 yesterday. Today it's less than that. White blood cell count significantly elevated on admission. Ultrasound shows gallbladder with tenderness and a large stone. CBD mildly distended at 1.1 cm. Yesterday's liver enzymes normal. Today bilirubin up slightly to 1.4 and AST up slightly as well. Denies any change in the color of her skin urine or stool. 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 - Review of Systems Comment: The patient denies any acute changes in vision or hearing, no dysphagia or odynophagia, no chest pain or shortness of breath, no dysuria or hematuria, no headache, no runny nose, no rectal bleeding or melena, no unexplained weight loss Past Medical History Past Medical History: Cancer, GERD/Reflux, Hyperlipidemia, Osteoarthritis (OA) Additional Past Medical History / Comment(s): HX DIVERTICULITIS, hx. breast cancer 5 yrs. ago-tx. w/radiation & surgery History of Any Multi-Drug Resistant Organisms: None Reported Past Surgical History: Breast Surgery, Section, Orthopedic Surgery, Tubal Ligation Additional Past Surgical History / Comment(s): right breast lumpectomy 2014 Past Anesthesia/Blood Transfusion Reactions: No Reported Reaction Past Psychological History: No Psychological Hx Reported Smoking Status: Never smoker Past Alcohol Use History: Occasional Past Drug Use History: None Reported - Past Family History Brother(s) Family Medical History: Blood Disorder Additional Family Medical History / Comment(s): BROTHER HX -FACTOR 5 LIEDEN - PT WAS RECENTLY TESTED BY DR. FOWLER AT [facility]-NO RESULTS YET Mother Family Medical History: Cancer Additional Family Medical History / Comment(s): breast CA Medications and Allergies Home Medications Medication Instructions Recorded Confirmed Type Cholecalciferol (Vitamin D3) 125 mcg PO DAILY 08/01/19 07/21/21 History [Vitamin D3 (5000 Iu)] Multivitamins, Thera [Multivitamin 1 tab PO DAILY 08/01/19 07/21/21 History (formulary)] Omeprazole Magnesium [PriLOSEC OTC] 20 mg PO DAILY 08/01/19 07/21/21 History Acetaminophen Tab [Tylenol Tab] 1,000 mg PO Q6HR PRN 07/21/21 07/21/21 History Ascorbic Acid [Vitamin C] 500 mg PO DAILY 07/21/21 07/21/21 History Calcium Carbonate [Tums] 1,000 mg PO TID PRN 07/21/21 07/21/21 History Ibuprofen [Motrin Ib] 400 mg PO Q8H PRN 07/21/21 07/21/21 History Beatty-3 Fatty Acids [Beatty-3] 1,000 mg PO DAILY 07/21/21 07/21/21 History buPROPion XL [Wellbutrin XL] 150 mg PO BID 07/21/21 07/21/21 History Allergies Allergy/AdvReac Type Severity Reaction Status Date / Time adhesive Allergy skin Verified 07/21/21 18:39 blisters when tape removed bacitracin Allergy Rash/Hives Verified 07/21/21 18:39 [From Neosporin ([id number])] bacitracin zinc Allergy Rash/Hives Verified 07/21/21 18:39 [From Neosporin ([id number])] neomycin sulfate Allergy Rash/Hives Verified 07/21/21 18:39 [From Neosporin ([id number])] nickel Allergy Rash/Hives Verified 07/21/21 18:39 polymyxin B Allergy Rash/Hives Verified 07/21/21 18:39 [From Neosporin ([id number])] Surgical - Exam Vital Signs Temp Pulse Resp BP Pulse Ox 98 F 82 18 178/82 97 07/21/21 17:32 07/21/21 17:32 07/21/21 17:32 07/21/21 17:32 07/21/21 17:32 Physical exam: General: Well-developed, well-nourished HEENT: Normocephalic, sclerae nonicteric Abdomen: Right upper quadrant tenderness, nondistended Extremities: No edema Neuro: Alert and oriented Results - Labs 07/21/21 18:42 07/22/21 00:47 Abnormal Lab Results - Last 24 Hours (Table) 07/21/21 07/21/21 07/21/21 Range/Units 18:42 18:42 19:28 WBC 18.3 H (3.8-10.6) k/uL Hgb 17.0 H (11.4-16.0) gm/dL Hct 49.9 H (34.0-46.0) % Plt Count 471 H (150-450) k/uL Neutrophils # 15.9 H (1.3-7.7) k/uL Sodium 132 L (137-145) mmol/L BUN 19 H (7-17) mg/dL Creatinine 0.46 L (0.52-1.04) mg/dL Glucose 122 H (74-99) mg/dL Total Bilirubin (0.2-1.3) mg/dL AST (14-36) U/L Urine Protein Trace H (Negative) Urine Ketones 2+ H (Negative) Urine Blood Moderate H (Negative) Urine RBC 44 H (0-5) /hpf Urine Mucus Rare H (None) /hpf 07/22/21 Range/Units 00:47 WBC (3.8-10.6) k/uL Hgb (11.4-16.0) gm/dL Hct (34.0-46.0) % Plt Count (150-450) k/uL Neutrophils # (1.3-7.7) k/uL Sodium 135 L (137-145) mmol/L BUN (7-17) mg/dL Creatinine 0.40 L (0.52-1.04) mg/dL Glucose 132 H (74-99) mg/dL Total Bilirubin 1.4 H (0.2-1.3) mg/dL AST 38 H (14-36) U/L Urine Protein (Negative) Urine Ketones (Negative) Urine Blood (Negative) Urine RBC (0-5) /hpf Urine Mucus (None) /hpf Diabetes panel 07/21/21 07/22/21 Range/Units 18:42 00:47 Sodium 132 L 135 L (137-145) mmol/L Potassium 3.8 4.4 (3.5-5.1) mmol/L Chloride 99 103 (98-107) mmol/L Carbon Dioxide 22 24 (22-30) mmol/L BUN 19 H 17 (7-17) mg/dL Creatinine 0.46 L 0.40 L (0.52-1.04) mg/dL Glucose 122 H 132 H (74-99) mg/dL Calcium 10.0 9.7 (8.4-10.2) mg/dL AST 29 38 H (14-36) U/L ALT 24 23 (4-34) U/L Alkaline Phosphatase 116 85 (38-126) U/L Total Protein 7.3 6.8 (6.3-8.2) g/dL Albumin 4.7 4.3 (3.5-5.0) g/dL Calcium panel 07/21/21 07/22/21 Range/Units 18:42 00:47 Calcium 10.0 9.7 (8.4-10.2) mg/dL Albumin 4.7 4.3 (3.5-5.0) g/dL Pituitary panel 07/21/21 07/22/21 Range/Units 18:42 00:47 Sodium 132 L 135 L (137-145) mmol/L Potassium 3.8 4.4 (3.5-5.1) mmol/L Chloride 99 103 (98-107) mmol/L Carbon Dioxide 22 24 (22-30) mmol/L BUN 19 H 17 (7-17) mg/dL Creatinine 0.46 L 0.40 L (0.52-1.04) mg/dL Glucose 122 H 132 H (74-99) mg/dL Calcium 10.0 9.7 (8.4-10.2) mg/dL Adrenal panel 07/21/21 07/22/21 Range/Units 18:42 00:47 Sodium 132 L 135 L (137-145) mmol/L Potassium 3.8 4.4 (3.5-5.1) mmol/L Chloride 99 103 (98-107) mmol/L Carbon Dioxide 22 24 (22-30) mmol/L BUN 19 H 17 (7-17) mg/dL Creatinine 0.46 L 0.40 L (0.52-1.04) mg/dL Glucose 122 H 132 H (74-99) mg/dL Calcium 10.0 9.7 (8.4-10.2) mg/dL Total Bilirubin 0.9 1.4 H (0.2-1.3) mg/dL AST 29 38 H (14-36) U/L ALT 24 23 (4-34) U/L Alkaline Phosphatase 116 85 (38-126) U/L Total Protein 7.3 6.8 (6.3-8.2) g/dL Albumin 4.7 4.3 (3.5-5.0) g/dL Assessment and Plan (1) Cholecystitis, acute with cholelithiasis Narrative/Plan: 70-year-old female with history, exam findings, and diagnostic studies suggesting acute cholecystitis. CBD slightly distended however liver enzymes close to normal. Clinical suspicion for choledocholithiasis low at this time. Options reviewed. We'll proceed with laparoscopic, possible open cholecystectomy at this time. Risks of bleeding, infection, bile leak, bile duct injury, retained common bile duct stone, trocar injury, conversion to an open procedure, hernia, anesthesia related complications were reviewed. The patient understands and wishes to proceed. Current Visit: Yes Status: Acute Code(s): K80.00 - CALCULUS OF GALLBLADDER W ACUTE CHOLECYST W/O OBSTRUCTION SNOMED Code(s): 71884059
[2021-07-22] MEDS: HEPARIN SODIUM,PORCINE/PF 5,000 UNIT/0.5 ML SYRINGE SQ SCH ×2 (10:56→16:43)
[2021-07-22] MEDS ORDERED: BUPIVACAINE (PF) 0.25% 30 ML VIAL SQ ONE ×2 (15:58→16:24)
[2021-07-22] MEDS ORDERED: fentaNYL (PF) 50 MCG/ML 2 ML AMP ONE (16:01)
[2021-07-22] MEDS ORDERED: GLYCOPYRROLATE 0.2 MG/ML 2 ML VIAL ONE (16:01)
[2021-07-22] MEDS ORDERED: DEXAMETHASONE SOD PHOSPHATE 10 MG/ML 1 ML VIAL ONE (16:01)
[2021-07-22] MEDS ORDERED: KETOROLAC 15 MG/ML 1 ML VIAL ONE (16:01)
[2021-07-22] MEDS ORDERED: SUCCINYLCHOLINE CHLORIDE 100 MG/5 ML SYR IV ONE (16:01)
[2021-07-22] MEDS ORDERED: MIDAZOLAM 2 MG/2 ML VIAL ONE (16:01)
[2021-07-22] MEDS ORDERED: PHENYLEPHRINE-0.9% NACL SYG 1,000 MCG/10 ML SYRINGE ONE (16:01)
[2021-07-22] MEDS ORDERED: ePHEDrine 50 MG/ML 1 ML VIAL ONE (16:01)
[2021-07-22] MEDS ORDERED: ONDANSETRON 4 MG/2 ML VIAL ONE (16:01)
[2021-07-22] MEDS ORDERED: NEOSTIGMINE 1 MG/ML 10 ML VIAL ONE (16:01)
[2021-07-22] MEDS ORDERED: LIDOCAINE 1% INJ 10MG/ML (20 ML MDV) ONE (16:01)
[2021-07-22] MEDS ORDERED: PROPOFOL 10 MG/ML 20 ML VIAL IV ONE (16:01)
[2021-07-22] MEDS ORDERED: ROCURONIUM 10 MG/ML (5 ML VIAL) IV ONE (16:01)
[2021-07-22] MEDS ORDERED: IV FLUID CONTINUATION 1,000 ML IV ONE (16:03)
[2021-07-22] MEDS ORDERED: SODIUM CHLORIDE 0.9% 100 ML with ceFAZolin 2,000 MG IV ONE ×2 (16:17)
[2021-07-22] MEDS ORDERED: ACETAMINOPHEN TAB 325 MG TAB PO PRN (17:44)
[2021-07-22] MEDS ORDERED: HYDROcodone/APAP 5-325MG 1 EACH TAB PO PRN (17:44)
--- NOTE | 2021-07-22 17:49 | P.OP ---
Date of Procedure: 07/22/21 Procedure(s) Performed: PREOPERATIVE DIAGNOSIS: Acute cholecystitis POSTOPERATIVE DIAGNOSIS: Acute cholecystitis with hydrops PROCEDURE: Laparoscopic cholecystectomy SURGEON: Yola EBL: Minimal see anesthesia record ANESTHESIA: Gen. COMPLICATIONS: None OPERATIVE PROCEDURE: The patient was brought and placed on the operating room table in the supine position. The patient was placed under general anesthesia at that time. The abdomen was prepped and draped in the usual sterile fashion. A small incision was made in the left upper quadrant. The optical trocar was used to enter the peritoneal cavity without difficulty. Full insufflation took place up to 15 mmHg. Patient was found to have adhesions to the previous midline incision. There appeared to be a small fascial defect present near the umbilicus. The patient also incidentally was noted to have a small inguinal hernia on the right hand side visualized. A 5 mm optical trocar was then placed in the infraumbilical location under direct visualization. We were able to avoid adhesions present there. It should be noted these adhesions were simply omentum and no bowel was present in that area. 2 additional 5 mm trochars were placed in the right upper quadrant under direct dilatation as well as a 12 mm trocar in the epigastrium. The patient's appendix was inspected and appeared normal. The gallbladder was markedly distended and significantly inflamed. In order to grasp and manipulate the gallbladder a small opening was created in the gallbladder was aspirated. The patient had hydrops fluid within the gallbladder. The peritoneum overlying the infundibulum was bluntly dissected. The patient's cystic duct was visualized. The junction between the cystic duct common and hepatic duct was identified. The critical view of safety was achieved after blunt dissection. The cystic duct was then divided after placement of a 2-0 Ethibond stitch and the time of device on the patient's side as well as a 12 mm clipper on the patient's side of the cystic duct. It should be noted the patient had significant edema and inflammatory response in the gallbladder fossa. The adjacent cystic artery was identified and clipped as well. A small vessel was seen along the gallbladder fossa and clipped as well. The gallbladder was then removed from the liver bed using electrocautery. The gallbladder was then removed from the epigastric trocar site with an Endo Catch bag. The gallbladder fossa was irrigated with saline. There was no evidence of any bleeding or biliary drainage seen. A drain was placed in the gallbladder fossa exiting through our most lateral 5 mm right upper quadrant trocar site. This was sutured in place using a 2-0 silk stitch. The fascia at the 12 millimeter site was closed using a running 0 Vicryl stitch. The trochars were then removed. The skin at all 4 sites was closed using a 4-0 Monocryl stitch. Skin glue was utilized on the incision sites. At the end of this procedure the sponge and needle counts were correct. DISPOSITION: Stable to the recovery room
[2021-07-22] MEDS: KETOROLAC 15 MG/ML 1 ML VIAL IVP SCH (18:29)
[2021-07-22] MEDS: FAMOTIDINE 20 MG/2 ML VIAL IV SCH (20:24)
[2021-07-23] MEDS: KETOROLAC 15 MG/ML 1 ML VIAL IVP SCH ×5 (00:05→23:37)
[2021-07-23] MEDS: HEPARIN SODIUM,PORCINE/PF 5,000 UNIT/0.5 ML SYRINGE SQ SCH ×4 (00:06→23:36)
[2021-07-23] MEDS: PIPERACILLIN-TAZOBACTAM 3.375 GM in SODIUM CHLORIDE 0.9% 100 ML IVPB SCH ×4 (00:06→23:37)
[2021-07-23] MEDS: SODIUM CHLORIDE 0.9% 1,000 ML IV SCH ×3 (00:08→13:23)
[2021-07-23] MEDS: FAMOTIDINE 20 MG/2 ML VIAL IV SCH ×2 (07:23→19:53)
[2021-07-23 09:59] LABS: Basophils # (A) 0.03 X 10*3/uL (0.00-0.10); Basophils % (A) 0.2 %; Eosinophils # (A) 0 X 10*3/uL (0.04-0.35); Eosinophils % (A) 0 %; HCT 41.8 % (37.2-46.3); HGB 13.7 g/dL (12.0-15.0); Immature Grans, Automated 0.7 %; Lymphocytes % (A) 7.3 %; MCHC 32.8 g/dL (32.0-37.0); MCV 100.7 fL (80.0-97.0); Mean Platelet Volume 10.3 fL (9.5-12.2); Monocytes # (A) 1.27 X 10*3/uL (0.20-1.00); Monocytes % (A) 7.1 %; NRBC Per 100 WBC 0 /100 WBCS (0.0-0.0); Neutrophils # (A) 15.15 X 10*3/uL (1.80-7.70); Neutrophils % (A) 84.7 %; Platelet Count 337 X 10*3/uL (140-440); RBC 4.15 X 10*6/uL (4.10-5.20); RDW 13.1 % (11.5-14.5); WBC 17.87 X 10*3/uL (4.50-10.00)
[2021-07-23 11:25] LABS: African American GFR (CKD) 114.5 (60.0-200.0); Albumin 3.3 g/dL (3.8-4.9); Albumin/Globulin Ratio 2.06 (1.60-3.17); Anion Gap 14.9 mmol/L (10.00-18.00); BUN/Creat Ratio 34.4 Ratio (12.00-20.00); Blood Urea Nitrogen 17.2 mg/dL (9.0-27.0); Calcium 8.9 mg/dL (8.7-10.3); Carbon Dioxide 18.1 mmol/L (20.0-27.5); Globulin 1.6 g/dL (1.6-3.3); Non-African American GFR(CKD) 98.8 (60.0-200.0); Potassium 4.2 mmol/L (3.5-5.5); Total Bilirubin 0.9 mg/dL (0.30-1.20); Total Protein 4.9 g/dL (6.2-8.2)
--- NOTE | 2021-07-23 12:38 | P.PN ---
<La Aguilar - Last Filed: 07/23/21 12:34> Subjective Progress Note Date: 07/23/21 CHIEF COMPLAINT: Acute cholecystitis HISTORY OF PRESENT ILLNESS: Patient is status post laparoscopic cholecystectomy for acute cholecystitis with hydrops. Patient reports minimal pain. She describes a pulling sensation every once a while in the abdomen. Denies any nausea or vomiting. Reports flatus. RK drain with serosanguineous output of 30 mL. Afebrile. White count trended down from 18.3-17.87. LFTs are trending upwards total bilirubin normal. Alk phos normal. AST 237 and ALT 388 PHYSICAL EXAM: VITAL SIGNS: Reviewed. GENERAL: Well-developed in no acute distress. HEENT: No sclera icterus. Extraocular movements grossly intact. Moist buccal mucosa. Head is atraumatic, normocephalic. ABDOMEN: Soft. Nondistended. Nontender. Incision site clean dry and intact. RK drain in place. NEUROLOGIC: Alert and oriented. Cranial nerves II through XII grossly intact. ASSESSMENT: 1. Acute cholecystitis with hydrops status post laparoscopic cholecystectomy 2. Elevated LFTs PLAN: -Further recommendations forthcoming per surgeon -Diet advanced to full liquids -Continue to monitor RK drain output -Continue pain medication as needed -Continue antibiotics -GI prophylaxis Pepcid and DVT prophylaxis subcu heparin Physician Web Sizer note has been reviewed by physician. Signing provider agrees with the documented findings, assessment, and plan of care. Objective - Vital Signs Vital signs: Vital Signs Temp 98.5 F 07/23/21 08:00 Pulse 75 07/23/21 08:00 Resp 16 07/23/21 08:00 BP 116/66 07/23/21 08:00 Pulse Ox 92 L 07/23/21 08:00 Intake & Output 07/22/21 07/23/21 07/23/21 18:59 06:59 18:59 Intake Total 800 Output Total 20 33 Balance 780 -33 Intake: IV 800 Output: Drainage 30 Abdomen 30 Urine 3 Estimated Blood Loss 20 Other: Voiding Method Toilet Toilet - Labs CBC & Chem 7: 07/23/21 03:29 07/23/21 03:29 Labs: Abnormal Lab Results - Last 24 Hours (Table) 07/23/21 07/23/21 Range/Units 03:29 03:29 WBC 17.87 H (4.50-10.00) X 10*3/uL MCV 100.7 H (80.0-97.0) fL MCH 33.0 H (27.0-32.0) pg Immature Gran # 0.12 H (0.00-0.04) X 10*3/uL Neutrophils # 15.15 H (1.80-7.70) X 10*3/uL Monocytes # 1.27 H (0.20-1.00) X 10*3/uL Eosinophils # 0 L (0.04-0.35) X 10*3/uL Carbon Dioxide 18.1 L (20.0-27.5) mmol/L Creatinine 0.5 L (0.6-1.5) mg/dL BUN/Creatinine Ratio 34.40 H (12.00-20.00) Ratio AST 237 H (13-35) U/L ALT 388 H (8-44) U/L Total Protein 4.9 L (6.2-8.2) g/dL Albumin 3.3 L (3.8-4.9) g/dL <Francisco Aceves - Last Filed: 07/23/21 17:20> Subjective I have personally seen and examined the patient, reviewed the [employer] /PAs history, exam and MDM and agree with the assessment and plan as written. Based on total visit time, I have performed more than 50% of the visit. As above: Patient says her pain is dramatically improved from preop. Labs noted. Transaminases are elevated. Given the intraoperative findings I suspect this is more related to cauterization against the liver bed then choledocholithiasis. RK drain is serosanguineous. We'll recheck labs tomorrow. Slowly advance diet. Objective - Vital Signs Vital signs: Vital Signs Temp 98.5 F 07/23/21 14:00 Pulse 88 07/23/21 14:00 Resp 16 07/23/21 14:00 BP 115/70 07/23/21 14:00 Pulse Ox 94 L 07/23/21 14:00 Intake & Output 07/22/21 07/23/21 07/23/21 18:59 06:59 18:59 Intake Total 800 Output Total 20 33 Balance 780 -33 Intake: IV 800 Output: Drainage 30 Abdomen 30 Urine 3 Estimated Blood Loss 20 Other: Voiding Method Toilet Toilet - Labs CBC & Chem 7: 07/23/21 03:29 07/23/21 03:29 Labs: Abnormal Lab Results - Last 24 Hours (Table) 07/23/21 07/23/21 Range/Units 03:29 03:29 WBC 17.87 H (4.50-10.00) X 10*3/uL MCV 100.7 H (80.0-97.0) fL MCH 33.0 H (27.0-32.0) pg Immature Gran # 0.12 H (0.00-0.04) X 10*3/uL Neutrophils # 15.15 H (1.80-7.70) X 10*3/uL Monocytes # 1.27 H (0.20-1.00) X 10*3/uL Eosinophils # 0 L (0.04-0.35) X 10*3/uL Carbon Dioxide 18.1 L (20.0-27.5) mmol/L Creatinine 0.5 L (0.6-1.5) mg/dL BUN/Creatinine Ratio 34.40 H (12.00-20.00) Ratio AST 237 H (13-35) U/L ALT 388 H (8-44) U/L Total Protein 4.9 L (6.2-8.2) g/dL Albumin 3.3 L (3.8-4.9) g/dL Assessment and Plan (1) Cholecystitis, acute with cholelithiasis Current Visit: Yes Status: Acute Code(s): K80.00 - CALCULUS OF GALLBLADDER W ACUTE CHOLECYST W/O OBSTRUCTION SNOMED Code(s): 28244355
[2021-07-24] MEDS: SODIUM CHLORIDE 0.9% 1,000 ML IV SCH ×3 (05:36→14:03)
[2021-07-24] MEDS: KETOROLAC 15 MG/ML 1 ML VIAL IVP SCH ×2 (05:36→14:03)
[2021-07-24] MEDS: FAMOTIDINE 20 MG/2 ML VIAL IV SCH (07:28)
[2021-07-24] MEDS: HEPARIN SODIUM,PORCINE/PF 5,000 UNIT/0.5 ML SYRINGE SQ SCH (07:30)
[2021-07-24] MEDS: PIPERACILLIN-TAZOBACTAM 3.375 GM in SODIUM CHLORIDE 0.9% 100 ML IVPB SCH (07:32)
[2021-07-24 07:50] VITALS: BP 146/71; PULSE 51; RESP 18; TEMP 98.6
[2021-07-24 09:14] LABS: Basophils # (A) 0.03 X 10*3/uL (0.00-0.10); Basophils % (A) 0.3 %; Eosinophils # (A) 0.17 X 10*3/uL (0.04-0.35); Eosinophils % (A) 1.6 %; HCT 38.4 % (37.2-46.3); HGB 12.5 g/dL (12.0-15.0); Immature Grans, Automated 0.4 %; Lymphocytes # (A) 1.81 X 10*3/uL (0.90-5.00); Lymphocytes % (A) 17.5 %; MCH 32.9 pg (27.0-32.0); MCHC 32.6 g/dL (32.0-37.0); MCV 101.1 fL (80.0-97.0); Mean Platelet Volume 10.5 fL (9.5-12.2); Monocytes # (A) 0.78 X 10*3/uL (0.20-1.00); Monocytes % (A) 7.5 %; NRBC Per 100 WBC 0 /100 WBCS (0.0-0.0); Neutrophils # (A) 7.51 X 10*3/uL (1.80-7.70); Neutrophils % (A) 72.7 %; Platelet Count 313 X 10*3/uL (140-440); RDW 13.2 % (11.5-14.5); WBC 10.34 X 10*3/uL (4.50-10.00)
[2021-07-24 09:42] LABS: African American GFR (CKD) 114.5 (60.0-200.0); Albumin 2.9 g/dL (3.8-4.9); Albumin/Globulin Ratio 1.71 (1.60-3.17); Anion Gap 12.5 mmol/L (10.00-18.00); BUN/Creat Ratio 25.4 Ratio (12.00-20.00); Blood Urea Nitrogen 12.7 mg/dL (9.0-27.0); Calcium 8.5 mg/dL (8.7-10.3); Carbon Dioxide 20.5 mmol/L (20.0-27.5); Globulin 1.7 g/dL (1.6-3.3); Non-African American GFR(CKD) 98.8 (60.0-200.0); Total Protein 4.6 g/dL (6.2-8.2)
--- NOTE | 2021-07-24 13:54 | P.DS ---
<La Aguilar - Last Filed: 07/24/21 13:50> Providers Expected date of discharge: 07/24/21 Hospital Course: Discharge diagnosis 1. Acute cholecystitis with hydrops status post laparoscopic cholecystectomy 2. Elevated LFTs Hospital course 70-year-old female presents with complaints of pain right upper quadrant. Pain radiates to the chest into the back. Started 2-3 days ago. No history of similar events. Patient has nausea without vomiting. Pain was 8 out of 10 yesterday. Today it's less than that. White blood cell count significantly elevated on admission. Ultrasound shows gallbladder with tenderness and a large stone. CBD mildly distended at 1.1 cm. patient is status post laparoscopic cholecystectomy. Her LFTs did elevate after surgery but are trending down. Per Dr. Aceves, given the intraoperative findings he suspects this is more related to cauterization against the liver bed then choledocholithiasis. Patient reports minimal pain. She is tolerating diet. She's afebrile. Her white count is trending down. Incision sites clean dry and intact. Patient is stable for discharge. Please refer to chart for any further details. Physician Fire Ranger note has been reviewed by physician. Signing provider agrees with the documented findings, assessment, and plan of care. Patient Condition at Discharge: Stable Plan - Discharge Summary New Discharge Prescriptions: New Ibuprofen [Motrin] 600 mg PO Q8HR PRN #30 tab PRN Reason: Pain Levofloxacin [Levaquin] 500 mg PO DAILY 7 Days #7 tab Continue Multivitamins, Thera [Multivitamin (formulary)] 1 tab PO DAILY Cholecalciferol (Vitamin D3) [Vitamin D3 (5000 Iu)] 125 mcg PO DAILY Omeprazole Magnesium [PriLOSEC OTC] 20 mg PO DAILY buPROPion XL [Wellbutrin XL] 150 mg PO BID Worden-3 Fatty Acids [Worden-3] 1,000 mg PO DAILY Calcium Carbonate [Tums] 1,000 mg PO TID PRN PRN Reason: Heartburn Acetaminophen Tab [Tylenol] 1,000 mg PO Q6HR PRN PRN Reason: Pain Or Fever > 100.5 Ascorbic Acid [Vitamin C] 500 mg PO DAILY Discontinued Ibuprofen [Motrin Ib] 400 mg PO Q8H PRN PRN Reason: Pain Or Fever > 100.5 Discharge Medication List Cholecalciferol (Vitamin D3) [Vitamin D3 (5000 Iu)] 125 mcg PO DAILY 08/01/19 [History] Multivitamins, Thera [Multivitamin (formulary)] 1 tab PO DAILY 08/01/19 [History] Omeprazole Magnesium [PriLOSEC OTC] 20 mg PO DAILY 08/01/19 [History] Acetaminophen Tab [Tylenol] 1,000 mg PO Q6HR PRN 07/21/21 [History] Ascorbic Acid [Vitamin C] 500 mg PO DAILY 07/21/21 [History] Calcium Carbonate [Tums] 1,000 mg PO TID PRN 07/21/21 [History] Worden-3 Fatty Acids [Worden-3] 1,000 mg PO DAILY 07/21/21 [History] buPROPion XL [Wellbutrin XL] 150 mg PO BID 07/21/21 [History] Ibuprofen [Motrin] 600 mg PO Q8HR PRN #30 tab 07/24/21 [Rx] Levofloxacin [Levaquin] 500 mg PO DAILY 7 Days #7 tab 07/24/21 [Rx] Follow up Appointment(s)/Referral(s): Francisco Aceves MD [Medical Doctor] - 08/08/21 2:40 pm Eliu Moore MD [Primary Care Provider] - 1-2 days (office busy at time of disacharge. Please call to schedule appointment ) Activity/Diet/Wound Care/Special Instructions: No lifting over 10 pounds You may shower. No soaking or tub baths for 2 weeks Very light activity until you are reevaluated at your follow up appointment with your surgeon Discharge Disposition: HOME SELF-CARE <Francisco Aceves - Last Filed: 07/24/21 14:34> Providers Date of admission: 07/24/21 10:20 Attending physician: Francisco Aceves Primary care physician: Viktor Moore - Discharge Diagnosis(es) (1) Cholecystitis, acute with cholelithiasis Current Visit: Yes Status: Acute Hospital Course: Patient doing well today. Liver enzymes are improved. May discharge. Follow- up one week. We'll remove RK drain and send patient home on IV antibiotics.
== END 2021-07-24 15:03 | disposition home or self-care (01) | DRG 940 ==
LOC: EC 17:29 → 5NMEDONC 23:37 → 4SSUR 07-22 00:20 → OBSVTOIN 07-24 10:20
PROVIDERS: ADMIT Surgery; ATTEND Surgery
PROC: 0FT44ZZ Resection of Gallbladder, Percutaneous Endoscopic Approach (ICD-10-PCS; principal; 2021-07-22 14:00)
DX: R74.01 Elevation of levels of liver transaminase levels (principal); K80.00 Calculus of gallbladder with acute cholecystitis without obstruction; K82.1 Hydrops of gallbladder; G89.18 Other acute postprocedural pain; K40.90 Unilateral inguinal hernia, without obstruction or gangrene, not specified as recurrent; K21.9 Gastro-esophageal reflux disease without esophagitis; E78.5 Hyperlipidemia, unspecified; M19.90 Unspecified osteoarthritis, unspecified site; Z79.899 Other long term (current) drug therapy; Z85.3 Personal history of malignant neoplasm of breast; Z90.10 Acquired absence of unspecified breast and nipple; Z98.51 Tubal ligation status; Z92.3 Personal history of irradiation; Z87.19 Personal history of other diseases of the digestive system; Z98.890 Other specified postprocedural states; Z88.1 Allergy status to other antibiotic agents; Z91.048 Other nonmedicinal substance allergy status; Z80.3 Family history of malignant neoplasm of breast
CPT/HCPCS: 36415; 71046; 74018; 76705; 80053; 81001; 82150; 83605; 83690; 84484; 85025; 85610; 85730; 88304; 96374; 99285

== ENCOUNTER → 2023-02-11 | Outpatient (CLI) | payer MEDICARE ==
--- NOTE | 2023-02-11 11:42 | CTL ---
EXAMINATION TYPE: CT Low Dose Lung DATE OF EXAM ORDERED: 02/11/2023 HISTORY: Lung cancer screening. Follow-up right upper lobe pulmonary nodule CT DLP: [address] CTDI: 2.14 mGy Automated exposure control for dose reduction was used. Multiple axial images are obtained to the tho rax without use of IV contrast and according to the low dose lung protocol. COMPARISON: 01/15/2022 TECHNIQUE: Low dose computed tomography scan was performed through the chest at 1 mm thick sections a nd reconstructed images in multiple planes at 1 mm and [address] DIAGNOSTIC QUALITY: Satisfactory The 7 - 8 mm right upper lobe pulmonary nodules again seen and is stable. No new or suspicious nodule s or lung masses seen. There is no airspace consolidation or abnormal interstitial density. There is no pleural effusion or pleural thickening or pneumothorax. The great vessels the chest are normal and there is no mediastinal, hilar or axillary adenopathy. Limited scanning the upper abdomen reveals no abnormality. There are bilateral breast prostheses. IMPRESSION: 1. Lung RADS category 2 benign. Stable 7- 8 mm right upper lobe pulmonary nodule. Continue routine sc reening at yearly intervals. 2. No acute cardiopulmonary disease.
== END | disposition home or self-care (01) ==
LOC: RADCTMAIN 10:29
PROVIDERS: ATTEND Family Medicine
DX: Z12.2 Encounter for screening for malignant neoplasm of respiratory organs (principal); R91.1 Solitary pulmonary nodule; F17.210 Nicotine dependence, cigarettes, uncomplicated
CPT/HCPCS: 71271